=== PATIENT | female | born 1955 | race Caucasian/White ===

== ENCOUNTER 2025-01-24 11:35 | Inpatient (IN) ==
[2025-01-24] MEDS ORDERED: ACETAMINOPHEN 1000 MG/100 ML 1,000 MG/100 ML IV.SOLN IV ONE (11:48)
[2025-01-24] MEDS: ACETAMINOPHEN 1000 MG/100 ML 1,000 MG/100 ML IV.SOLN IV STA (12:23)
[2025-01-24 12:27] LABS: Basophils #(Absolute) Auto 0.1 (0.0-0.1); Basophils%(Percent) Auto 0.4 (0.1-0.85); Eosinophils#(Absolute)Auto 0.1 (0.0-0.2); Eosinophils%(Percent) Auto 0.5 % (0.4-2.8); Granulocytes % - Auto 86.1 % (47.8-71.3); Granulocytes#(Absolute)- Auto 11.9 (2.3-6.0); Hematocrit 40.3 % (35.9-46.7); Mean Corpuscular Volume 92.2 fl (81.0-93.7); Monocytes #(Absolute)- Auto 1.4 (1.1-3.1); Monocytes %(Percent)- Auto 10.5 % (3.6-9.8); Platelet Count 116 K/uL (152-353); White Blood Count 13.8 K/uL (4.3-9.3)
--- NOTE | 2025-01-24 12:30 | Emergency Department Note ---
HPI - Fever General Chief Complaint: Weakness Stated Complaint: nausea/fever Time Seen by Provider: 01/24/25 11:46 Source: patient and family Source comment: spouse Mode of arrival: walk-in Limitations: no limitations History of Present Illness HPI Narrative: 69-year-old female presents to ER from her primary care provider's office with presentation of fever, weakness, and general body aches with not feeling well. Patient reports that her primary care provider's office gave her a shot for nausea but did not do any other testing beside swabbing her for flu, COVID, and strep throat which were all negative. MD elicited complaint: Reports fever and weakness Pertinent past history: Reports other (Lupus, rheumatoid arthritis) Onset (ago): day(s) (1) Measured temperature: 102.5 F Context: Reports other (recent illness) Exacerbating factors: Reports exertion Relieving factors: Reports nothing Associated symptoms: Reports chills, myalgias, rhinorrhea, nasal congestion, cough, shortness of breath and nausea Treatments prior to arrival fever: Reports acetaminophen Related Data Home Medications Medication Instructions Recorded Confirmed atorvastatin 10 mg tablet 10 mg PO DAILY 01/24/2501/09 carvedilol 6.25 mg tablet 6.25 mg PO DAILY 01/24/25 folic acid 1 mg tablet 1 mg PO DAILY 01/24/2501/24 levocetirizine 5 mg tablet 5 mg PO DAILY 01/24/2501/09 methenamine hippurate 1 gram tablet 1 g PO Q12H 01/24/25 mirabegron 50 mg tablet,extended 50 mg PO Q24H 5 01/24/25 release 24 hr montelukast 10 mg tablet 10 mg PO DAILY 01/24/2501/09 nintedanib 150 mg capsule (Ofev) 150 mg PO Q12H 01/24/25 pantoprazole 40 mg tablet,delayed 40 mg PO DAILY 01/2401/24/25 release prednisone 5 mg tablet 5 mg PO DAILY 01/24/2501/24 Allergies Allergy/AdvReac Type Severity Reaction Status Date / Time amoxicillin (From Augmentin) Allergy Verified 01/24/25 11:54 clavulanic acid (From Allergy Verified 01/24/25 11:54 Augmentin) quinine Allergy Verified 01/24/25 11:54 sulfamethoxazole (From Allergy Verified 01/24/25 11:54 Bactrim) trimethoprim (From Bactrim) Allergy Verified 01/24/25 11:54 vonoprazan Allergy Verified 01/24/25 11:54 Review of Systems Status of ROS 10 or more systems reviewed and unremark able except as noted in history and below Constitutional Reports: fever, chills and fatigue Ears, nose, mouth, and throat Reports: nasal congestion Cardiovascular Reports: shortness of breath with exertion and shortness of breath when lying down Respiratory Reports: shortness of breath, cough and chest congestion Gastrointestinal Reports: nausea Genitourinary Reports: painful urination and urinary frequency Neurological Reports: headache Psychiatric Reports: anxiety Allergic/Immunologic Reports: seasonal allergies [facility] Medical History (Updated 01/24/25 @ 11:58 by Fransisca Bella RN) Cirrhosis of liver Lupus Interstitial lung disease Surgical History (Updated 01/24/25 @ 11:58 by Fransisca Bella RN) H/O total knee replacement Hx of bladder repair surgery H/O total hysterectomy History of section Social History Smoking status: unknown if ever smoked What is your current living situation: I presently have a place to live Feel stressed/tense/nervous/anxious/difficulty sleeping: to some extent Life stressor details: Current medical condition Exam Constitutional: normal general appearance, distress noted (moderate), average body habitus, no limitations and alert Vital Signs - 24 hr 01/24/25 11:41 01/24/25 12:30 01/24/25 13:00 Temperature 102.5 F H 99.2 F Pulse Rate 94 H 89 88 Respiratory Rate 19 16 16 Blood Pressure 125/56 121/66 116/56 Pulse Oximetry 92 L 93 L 93 L Oxygen Delivery Ks thod Room Air Room Air Oxygen Flow Rate 01/24/25 13:24 01/24/25 13:30 01/24/25 13:45 Temperature Pulse Rate 88 87 85 Respiratory Rate 20 20 20 Blood Pressure 116/56 121/59 125/61 Pulse Oximetry 92 L 90 L 91 L Oxygen Delivery Ks thod Room Air Room Air Room Air Oxygen Flow Rate 01/24/25 14:01 01/24/25 14:16 01/24/25 14:31 Temperature Pulse Rate 85 81 82 Respiratory Rate 20 18 18 Blood Pressure 155/86 142/82 149/74 Pulse Oximetry 88 L 97 97 Oxygen Delivery Me thod Room Air Nasal Cannula Nasal Cannula Oxygen Flow Rate 2 2 01/24/25 14:45 Temperature Pulse Rate 86 Respiratory Rate 20 Blood Pressure 158/80 Pulse Oximetry 98 Oxygen Delivery Me thod Nasal Cannula Oxygen Flow Rate 2 HENMT: normocephalic, head/scalp atraumatic, hearing grossly normal bilaterally, external ears normal, nasal mucous membranes abnormal (clear) (nasal discharge), external nose normal, oral mucous membranes normal, oropharynx normal, dentition normal and gingiva normal Eyes: PERRL, EOMs intact bilaterally, conjunctivae normal, no scleral icterus, no papilledema, normal visual [place] by confrontation, alignment normal, periorbital findings normal and no nystagmus Neck/C-Spine: visual inspection normal, trachea midline, cervical spine non tender, cervical full ROM noted and supple Lymph: no lymphadenopathy noted and no lymphedema noted Chest: inspection of chest normal, inspection of breast(s) abnormal and palpation of breast(s) abnormal Respiratory: breath sounds equal bilaterally, normal respiratory effort, auscultation abnormal (diminished breath sound) (left lower lobe), no wheezes, no rales, no retractions and no use of accessory muscles Cardiovascular: normal heart rate noted, regular rhythm noted, no gallop, no rub, no murmur, no JVD, no clicks, peripheral pulses 2+ throughout, no bruits noted and no additional abnormal heart sounds Gastrointestinal: abdomen normal to inspection, abdomen soft to palpation, tender to palpation (diffuse abd pain) (mild), nondistended, normoactive bowel sounds, no hepatosplenomegaly, no masses, no pulsatile mass, no ascites and normal rectal exam (deferred) Genitourinary: no CVA tenderness, bladder normal to palpation, external appearance abnormal, vaginal abnormality noted (deferred), cervical abnormality noted, bimanual exam abnormal and inguinal lymphadenopathy noted Back/Pelvis: spine normal to inspection Extremities: normal to inspection, normal to palpation, no tenderness, full ROM, no joint enlargement and no deformity Neurology: manual arts therapist II-XII intact, no movement abnormality noted, no focal motor deficit noted, no sensory deficits noted, gait normal, speech normal, coordination normal, no pronator drift noted, no fasciculations noted and GCS normal Psychiatry: Mental Status Exam documented within this Exam's Psych section mental status grossly normal, oriented x3, thought process normal, cooperative, affect normal, psychomotor activity normal and memory normal Feel stressed/tense/nervous/anxious/difficulty sleeping: to some extent Life stressor details: Current medical condition Skin: skin color normal, no rash, no lesions, no ecchymosis noted, no wounds, no lacerations, skin turgor normal, no jaundice, no petechiae, no mottling, nails normal and no alopecia Course Course Hospital Course: 69-year-old female who presented to ER from her primary care provider's office complaining of weakness, fatigue, fever, body aches has been evaluated by physical exam, CBC, CMP, urinalysis, urine culture, blood culture, lactic acid, plain film chest x-ray, and EKG with results as noted in charting. Patient's EKG reveals normal sinus rhythm with no ectopy noted no signs of STEMI, patient's chest x-ray reveals left lower lobe bronchopneumonia, patient's CBC reveals leukocytosis with a 13.7 white count, CMP reveals hypokalemia with potassium 3.5, hypoalbuminemia, urinalysis reveals a urinary tract infection that is leukoesterase and nitrite positive. Patient will be diagnosed with left lower lobe bronchopneumonia, pyrexia, UTI, pyelonephritis, hypokalemia, anemia and [facility] antibiotic therapy, respiratory therapy, incentive spirometry therapy, fluid rehydration, and ongoing evaluation of lab work as necessary. Patient has been advised of need for admission and has agreed with the treatment pathway at this time. Reevaluation(s) Reevaluation #1: Patient reports that she feels better with the administration of oxygen via nasal cannula and that she does not wish to be admitted for IV antibiotic therapy after discovering her pneumonia. Patient reports she does not want any more hypoxic due to other chronic conditions she has including lupus and rheumatoid arthritis. Time: 14:00 Vital Signs Vital signs: Vital Signs Temperature 102.5 F H 01/24/25 11:41 Pulse Rate 94 H 01/24/25 11:41 Respiratory Rate 19 01/24/25 11:41 Blood Pressure 125/56 01/24/25 11:41 Pulse Oximetry 92 L 01/24/25 11:41 Temperature 99.2 F 01/24/25 13:00 Pulse Rate 86 01/24/25 14:45 Respiratory Rate 20 01/24/25 14:45 Blood Pressure 158/80 01/24/25 14:45 Pulse Oximetry 98 01/24/25 14:45 Oxygen Delivery Method Nasal Cannula 01/24/25 14:45 Oxygen Flow Rate 2 01/24/25 14:45 MDM - Fever MDM Narrative Medical decision making narrative: Medical Decision Making this patient Volle physical exam, CBC, CMP, urinalysis, urine culture, lactic acid, blood cultures, plain film chest x-ray, and EKG. Differential Diagnosis Differential diagnosis: Likely fever of unknown origin, community acquired pneumonia, pyelonephritis, viral infection, sepsis, influenza and other (Urinary tract infection, hyperglycemia, hypothyroidism) Medical Records Attestation: I reviewed the patient's medical records. Lab Data Attestation: I reviewed the patient's lab results. Labs: Lab Results 01/24/25 01/24/25 Range/Units 11:55 12:00 WBC 13.8 H (4.3-9.3) K/uL RBC 4.4 (4.00-5.50) M/uL Hgb 12.9 (12.5-15.8) gm/dL Hct 40.3 (35.9-46.7) % MCV 92.2 (81.0-93.7) fl MCH 29.6 (27.6-32.2) pg MCHC 32.1 L (33.1-35.3) g/dl RDW 16.2 H (11.4-14.2) % Plt Count 116 L (152-353) K/uL MPV 8.8 (6.9-10.8) fl Gran % 86.1 H (47.8-71.3) % Lymph % (Auto) 2.5 L (20.0-43.0) % [place] % (Auto) 10.5 H (3.6-9.8) % Eos % (Auto) 0.5 (0.4-2.8) % Baso % (Auto) 0.4 (0.1-0.85) Lymph # (Auto) 0.3 L (1.1-3.1) [place] # (Auto) 1.4 (1.1-3.1) Eos # (Auto) 0.1 (0.0-0.2) Baso # (Auto) 0.1 (0.0-0.1) Absolute Gran (auto) 11.9 H (2.3-6.0) Sodium 139 (136-145) mmol/L Potassium 3.5 L (3.6-5.2) mmol/L Chloride 105.0 (98-107) mmol/L Carbon Dioxide 29 (21-32) mmol/L Anion Gap 5.0 (4-14) mEq/L BUN 13 (7-18) mg/dL Creatinine 0.7 (0.6-1.3) mg/dL Estimated GFR 93.0 (>59.9) Glucose 114 H (70-110) mg/dL Calcium 9.0 (8.5-10.1) mg/dL Total Bilirubin 1.48 H (0.0-1.0) mg/dL AST 36 (15-37) U/L ALT 34 (30-65) U/L Alkaline Phosphatase 79 (50-136) U/L Total Protein 7.3 (6.4-8.2) g/dL Albumin 3.1 L (3.4-5.0) g/dL Urine Color Yellow (STRAW/YELL.) Urine Appearance Hazy (CLEAR) Ur Specific [place] 1.025 (1.001-1.035) Urine Protein Negative (NEGATIVE) Urine Glucose (UA) Normal (NORMAL) Urine Ketones Negative (NEGATIVE) Urine Occult Blood Negative (NEG - TRACE) Urine Nitrite Positive (NEGATIVE) Urine Bilirubin Negative (NEGATIVE) Urine Urobilinogen Normal (NORMAL) Ur Leukocyte Esterase Positive (NEGATIVE) Urine RBC 0 - 2 (0 - 5) Urine WBC 5 - 10 ( 0 - 5) Ur Epithelial Cells Few (Few/HPF) Amorphous Sediment Negative (Negative) Urine Bacteria Moderate (Negative) Urine Mucus Negative (Negative) Urine Trichomonas Negative (Negative) Urine Yeast Negative (Negative) Fluid pH 6.5 (5 - 9) Imaging Data Imaging ordered: Chest x-ray Attestation: I have reviewed the pertinent imaging results. Radiologist's impression: EXAM: XR CHEST 1V HISTORY: Weakness, fever COMPARISON: 10/14/2020 FINDINGS: The trachea is midline. The cardiac silhouette is enlarged with a tortuous thoracic aorta. Scattered airspace disease within left hilar and infrahilar region consistent with developing left lower lobe bronchopneumonia.. The bony thorax is unremarkable. IMPRESSION: Left lower lobe bronchopneumonia. THIS IS AN ELECTRONICALLY VERIFIED FINAL REPORT 01/24/2025 1:15 PM - Electronically signed by Albert Ibrahim MD ECG Data Attestation: I have reviewed the pertinent ECG results. Interpretation: Sinus rhythm rate 87 Normal P axis Heart RR 688 DC 130 QT 363 P axis 45 QRS 7 T 46 Discharge Plan Discharge Patient Disposition: Admitted As Inpatient Condition: Stable Clinical Impression: Left lower lobe pneumonia, Acute pyelonephritis, Urinary tract infection, Pyrexia, Leukocytosis, Acute hypokalemia, Hypoalbuminemia Time of Disposition: 14:00
[2025-01-24 12:35] LABS: Potassium 3.5 mmol/L (3.6-5.2)
[2025-01-24 12:42] LABS: PH BODY FLUID EXCP BLOOD 6.5 (5 - 9); Specific Gravity Urine 1.025 (1.001-1.035); Urine Appearance HAZY (CLEAR); Urine Blood NEGATIVE (NEG - TRACE); Urine Color YELLOW (STRAW/YELL.); Urine Urobilinogen Normal (NORMAL)
[2025-01-24 12:43] LABS: Urine Amorphous Sediment Negative (Negative); Urine Yeast Negative (Negative)
[2025-01-24] MEDS ORDERED: CEFTRIAXONE SODIUM 1 GM VIAL ONE (15:17)
[2025-01-24] MEDS ORDERED: 0.9 % SODIUM CHLORIDE MB+ 100 ML IV ONE (15:18)
[2025-01-24] MEDS: CEFTRIAXONE SODIUM 1 GM in 0.9 % SODIUM CHLORIDE MB+ 50 ML IV ONE (15:44)
[2025-01-24] MEDS ORDERED: 0.9 % SODIUM CHLORIDE MB+ 50 ML IV ONE (15:45)
[2025-01-24] MEDS ORDERED: ONDANSETRON HCL/PF 4 MG/2 ML VIAL INJ PRN (15:46)
[2025-01-24] MEDS ORDERED: PROMETHAZINE HCL 25 MG in 0.9 % SODIUM CHLORIDE 50 ML IV PRN (15:46)
[2025-01-24] MEDS ORDERED: MORPHINE SULFATE 2 MG/ML CARTRIDGE IV PRN (15:46)
[2025-01-24] MEDS ORDERED: DOCUSATE SODIUM 100 MG CAPSULE PO PRN (15:46)
[2025-01-24] MEDS: AZITHROMYCIN 500 MG 500 MG in 0.9 % SODIUM CHLORIDE 250 ML IV ONE ×2 (18:28→20:32)
[2025-01-24] MEDS: 0.9 % SODIUM CHLORIDE 1000 ML 1,000 ML IV SCH ×2 (18:29→20:32)
[2025-01-24] MEDS: ATORVASTATIN CALCIUM 10 MG TABLET PO ONE (20:32)
[2025-01-24] MEDS: ACETAMINOPHEN 1000 MG/100 ML 1,000 MG/100 ML IV.SOLN IV PRN (20:32)
[2025-01-24] MEDS: carvediloL 6.25 MG TABLET PO ONE (20:32)
[2025-01-24] MEDS: BUDESONIDE 0.5 MG/2 ML AMPUL.NEB INH SCH (21:04)
[2025-01-24] MEDS: CODEINE PHOSPHATE/GUAIFENESIN 200/20 MG/ 10 ML LIQUID PO PRN (21:04)
[2025-01-24] MEDS: IPRATROPIUM/ALBUTEROL SULFATE 3 ML AMPUL.NEB INH SCH (21:04)
[2025-01-25] MEDS: KETOROLAC 30 MG/ML INJ VIAL IVP PRN ×2 (01:05→22:30)
[2025-01-25 05:09] LABS: Basophils%(Percent) Auto 0.2 (0.1-0.85); Eosinophils#(Absolute)Auto 0.1 (0.0-0.2); Granulocytes % - Auto 82.9 % (47.8-71.3); Granulocytes#(Absolute)- Auto 6.2 (2.3-6.0); Hematocrit 34.5 % (35.9-46.7); Mean Corpuscular Volume 91.9 fl (81.0-93.7); Monocytes #(Absolute)- Auto 0.8 (1.1-3.1); Monocytes %(Percent)- Auto 11.1 % (3.6-9.8); Platelet Count 81 K/uL (152-353); White Blood Count 7.5 K/uL (4.3-9.3)
[2025-01-25 05:27] LABS: Potassium 2.9 mmol/L (3.6-5.2)
[2025-01-25] MEDS: CEFTRIAXONE SODIUM 1 GM in 0.9 % SODIUM CHLORIDE MB+ 50 ML IV SCH (08:22)
[2025-01-25] MEDS: AZITHROMYCIN 500 MG 500 MG in 0.9 % SODIUM CHLORIDE 250 ML IV SCH (08:22)
[2025-01-25] MEDS: PANTOPRAZOLE SODIUM 40 MG TABLET.DR PO SCH (08:23)
[2025-01-25] MEDS: LEVOFLOXACIN/D5W 750 MG/150 ML 750 MG/150 ML PIGGYBACK IV SCH (09:02)
[2025-01-25] MEDS: KETOROLAC 30 MG/ML INJ VIAL IVP ONE (09:20)
--- NOTE | 2025-01-25 10:09 | History & Physical Report ---
H&P: HPI History of Present Illness Chief complaint: PNEUMONIA, PYELONEPGRITIS, UTI, FEVER, LEUKOCYTOSI Narrative: 69-year-old female presents to ER from her primary care provider's office with presentation of fever, weakness, and general body aches with not feeling well. Patient reports that her primary care provider's office gave her a shot for nausea but did not do any other testing beside swabbing her for flu, COVID, and strep throat which were all negative. On chronic Immunosuppressants drugs for auto immune suppressants and fevers still present on arrival to the floor. MD elicited complaint: Reports fever and weakness and worsening breathing Review of Systems Status of ROS 10 or more systems reviewed and unremark able except as noted in history and below Constitutional Reports: fever, chills and fatigue; Denies: change in sleep pattern Eyes Denies: change in vision, blurry vision or blind spots Ears, nose, mouth, and throat Reports: difficulty swallowing and nasal congestion; Denies: throat pain, neck pain, throat swelling or hoarseness Cardiovascular Reports: palpitations, lightheadedness, shortness of breath with exertion and shortness of breath when lying down; Denies: chest pain, edema or swelling of feet/ankles Respiratory Reports: shortness of breath, cough, wheezing and chest congestion Gastrointestinal Reports: nausea and heartburn; Denies: vomiting, coffee grounds in vomit, diarrhea, constipation, bloating, belching or excessive passing of gas Genitourinary Denies: urinary incontinence Musculoskeletal Denies: back pain, neck pain, extremity pain, extremity swel ling or joint pain Integumentary/Breast Denies: rash, itching, redness, skin pain or skin tenderness Neurological Reports: headache and difficulty communicating thoughts; Denies: numbness in extremities, weakness in extremities, dizziness, confusion or slurred speech Psychiatric Reports: anxiety and difficulty concentrating; Denies: mood swings, panic attacks, change in sleep pattern, hopelessness, loss of interest, irritability, paranoia or memory loss Endocrine Reports: fatigue; Denies: excessive urination, excessive thirst, cold intolerance, excessive sweating or flushing Hematologic/Lymphatic Denies: easy bruising, easy bleeding or enlarged lymph nodes Allergic/Immunologic Reports: seasonal allergies; Denies: hives, throat swelling, tongue swelling, facial swelling, wheezing or itchy eyes [facility] Medical History Hypoalbuminemia Cirrhosis of liver Lupus Interstitial lung disease Surgical History H/O total knee replacement Hx of bladder repair surgery H/O total hysterectomy History of section Social History Smoking status: unknown if ever smoked What is your current living situation: I presently have a place to live Problems where you live: no known problems Highest level of school completed/degree received: high school Feel stressed/tense/nervous/anxious/difficulty sleeping: to some extent Life stressors: other Life stressor details: current health Meds Home Medications and Allergies Home Medications Medication Instructions Recorded Confirmed Type atorvastatin 10 mg tablet 10 mg PO DAILY 01/24/2501/09 History carvedilol 6.25 mg tablet 6.25 mg PO DAILY 01/24/25 History folic acid 1 mg tablet 1 mg PO DAILY 01/24/2501/24 History levocetirizine 5 mg tablet 5 mg PO DAILY 01/24/2501/09 History methenamine hippurate 1 gram tablet 1 g PO Q12H 01/24/25 History mirabegron 50 mg tablet,extended 50 mg PO Q24H 5 01/24/25 History release 24 hr montelukast 10 mg tablet 10 mg PO DAILY 01/24/2501/09 History nintedanib 150 mg capsule (Ofev) 150 mg PO Q12H 01/24/25 History pantoprazole 40 mg tablet,delayed 40 mg PO DAILY 01/2401/24/25 History release prednisone 5 mg tablet 5 mg PO DAILY 01/24/2501/24 History Allergies Allergy/AdvReac Type Severity Reaction Status Date / Time amoxicillin (From Augmentin) Allergy Verified 01/24/25 11:54 clavulanic acid (From Allergy Verified 01/24/25 11:54 Augmentin) quinine Allergy Verified 01/24/25 11:54 sulfamethoxazole (From Allergy Verified 01/24/25 11:54 Bactrim) trimethoprim (From Bactrim) Allergy Verified 01/24/25 11:54 vonoprazan Allergy Verified 01/24/25 11:54 Exam Constitutional: abnormal general appearance (disheveled) and (chronically ill), distress noted (moderate), average body habitus, no limitations and alert Vital Signs - 24 hr 01/24/25 11:41 01/24/25 12:30 01/24/25 13:00 Temperature 102.5 F H 99.2 F Pulse Rate 94 H 89 88 Pulse Rate [Left B rachial] Respiratory Rate 19 16 16 Blood Pressure 125/56 121/66 116/56 Blood Pressure [Le ft Arm] Pulse Oximetry 92 L 93 L 93 L Oxygen Delivery Me thod Room Air Room Air Oxygen Flow Rate Fraction of Inspir ed Oxygen 01/24/25 13:24 01/24/25 13:30 01/24/25 13:45 Temperature Pulse Rate 88 87 85 Pulse Rate [Left B rachial] Respiratory Rate 20 20 20 Blood Pressure 116/56 121/59 125/61 Blood Pressure [Le ft Arm] Pulse Oximetry 92 L 90 L 91 L Oxygen Delivery Me thod Room Air Room Air Room Air Oxygen Flow Rate Fraction of Inspir ed Oxygen 01/24/25 14:01 01/24/25 14:16 01/24/25 14:16 Temperature Pulse Rate 85 81 Pulse Rate [Left B rachial] Respiratory Rate 20 18 Blood Pressure 155/86 142/82 Blood Pressure [Le ft Arm] Pulse Oximetry 88 L 97 Oxygen Delivery Me thod Room Air Nasal Cannula Nasal Cannula Oxygen Flow Rate 2 3 Fraction of Inspir ed Oxygen 01/24/25 14:31 01/24/25 14:45 01/24/25 15:00 Temperature Pulse Rate 82 86 77 Pulse Rate [Left B rachial] Respiratory Rate 18 20 16 Blood Pressure 149/74 158/80 153/92 Blood Pressure [Le ft Arm] Pulse Oximetry 97 98 98 Oxygen Delivery Me thod Nasal Cannula Nasal Cannula Nasal Cannula Oxygen Flow Rate 2 2 2 Fraction of Inspir ed Oxygen 01/24/25 15:30 01/24/25 15:46 01/24/25 16:00 Temperature 98.3 F Pulse Rate 72 77 Pulse Rate [Left B rachial] 86 Respiratory Rate 16 18 16 Blood Pressure 128/61 100/48 Blood Pressure [Le ft Arm] 123/56 Pulse Oximetry 98 98 98 Oxygen Delivery Me thod Nasal Cannula Nasal Cannula Nasal Cannula Oxygen Flow Rate 2 3 2 Fraction of Inspir ed Oxygen 01/24/25 16:16 01/24/25 19:29 01/24/25 19:59 Temperature 99.1 F Pulse Rate Pulse Rate [Left B rachial] 94 H Respiratory Rate 20 20 Blood Pressure Blood Pressure [Le ft Arm] 131/75 Pulse Oximetry 90 L 98 Oxygen Delivery Me thod Room Air Nasal Cannula Oxygen Flow Rate 3 Fraction of Inspir ed Oxygen 32 01/24/25 21:05 01/24/25 23:19 01/25/25 01:00 Temperature 99.7 F H Pulse Rate Pulse Rate [Left B rachial] 80 83 Respiratory Rate 19 18 Blood Pressure Blood Pressure [Le ft Arm] 105/46 Pulse Oximetry 97 98 99 Oxygen Delivery Me thod Nasal Cannula Nasal Cannula Oxygen Flow Rate 2 2 Fraction of Inspir ed Oxygen 01/25/25 04:26 01/25/25 04:26 01/25/25 05:53 Temperature 99.1 F Pulse Rate Pulse Rate [Left B rachial] 63 Respiratory Rate 18 Blood Pressure Blood Pressure [Le ft Arm] Pulse Oximetry 100 86 L Oxygen Delivery Me thod Nasal Cannula Oxygen Flow Rate 2 Fraction of Inspir ed Oxygen 01/25/25 07:37 01/25/25 08:24 Temperature 101.7 F H Pulse Rate Pulse Rate [Left B rachial] 95 H Respiratory Rate 19 Blood Pressure Blood Pressure [Le ft Arm] 101/46 Pulse Oximetry 96 99 Oxygen Delivery Me thod Nasal Cannula Oxygen Flow Rate 3 Fraction of Inspir ed Oxygen HENMT: normocephalic, head/scalp atraumatic, hearing grossly normal bilaterally, external ears normal, nasal mucous membranes abnormal (clear) (nasal discharge), external nose normal, oral mucous membranes normal, oropharynx normal, dentition normal and gingiva normal Eyes: PERRL, EOMs intact bilaterally, conjunctivae normal, no scleral icterus, papilledema noted, normal visual [place] by confrontation, alignment normal, periorbital findings normal and no nystagmus Neck/C-Spine: trachea midline, cervical spine nontender, abnormal cervical ROM noted, supple, no meningeal signs, thyroid normal and no carotid bruits Lymph: no lymphadenopathy noted and no lymphedema noted Chest: inspection of chest normal, inspection of breasts normal and palpation of breasts normal Respiratory: breath sounds equal bilaterally, normal respiratory effort, auscultation abnormal (diminished breath sound) (left lower lobe) and (bronchial breath sounds), no wheezes, no rales, no retractions and no use of accessory muscles Cardiovascular: normal heart rate noted, regular rhythm noted, no gallop, no rub, no murmur, no JVD, no clicks, peripheral pulses 2+ throughout, no bruits noted and no additional abnormal heart sounds Gastrointestinal: abdomen normal to inspection, abdomen soft to palpation, tender to palpation (diffuse abd pain) (mild), nondistended, normoactive bowel sounds, no hepatosplenomegaly, no masses, no pulsatile mass and no ascites Genitourinary: no CVA tenderness and bladder normal to palpation Back/Pelvis: no thoracic spine tenderness, no lumbar spine tenderness, thoracic spine ROM abnormal and lumbar spine ROM abnormal Extremities: normal to inspection, normal to palpation, no tenderness, full ROM, no joint enlargement and no deformity Neurology: sole tacker II-XII intact, no movement abnormality noted, no focal motor deficit noted, sensory deficit noted, gait abnormality noted, speech abnormality noted, coordination abnormality noted, pronator drift noted, no fasciculations noted and GCS normal Psychiatry: Mental Status Exam documented within this Exam's Psych section mental status grossly normal, oriented x3, thought process abnormality noted, cooperative, affect abnormality noted (labile), psychomotor abnormality noted (slow) and (disorganized) and memory normal Feel stressed/tense/nervous/anxious/difficulty sleeping: to some extent Life stressors: other Life stressor details: current health Skin: skin color abnormal Reports (pale), no rash, no lesions, no ecchymosis noted, no wounds, no lacerations, skin turgor normal, no jaundice, no petechiae, no mottling, nails abnormality noted and no alopecia Assessment and Plan Assessment and Plan (1) Left lower lobe pneumonia: Qualifiers: Pneumonia type: due to unspecified organism Qualified Code(s): J18.9 - Pneumonia, unspecified organism Code(s): J18.9 - Pneumonia, unspecified organism (2) Cirrhosis of liver: Qualifiers: Hepatic cirrhosis type: unspecified hepatic cirrhosis Ascites presence: without ascites Qualified Code(s): K74.60 - Unspecified cirrhosis of liver Code(s): K74.60 - Unspecified cirrhosis of liver (3) Lupus: (4) Interstitial lung disease: Code(s): J84.9 - Interstitial pulmonary disease, unspecified (5) Hypokalemia: Code(s): E87.6 - Hypokalemia (6) Hypoalbuminemia: Code(s): E88.09 - Other disorders of plasma-protein metabolism, not elsewhere classified Results Labs Labs: CBC 01/24/25 01/25/25 Range/Units 11:55 05:05 WBC 13.8 H 7.5 (4.3-9.3) K/uL RBC 4.4 3.8 L (4.00-5.50) M/uL Hgb 12.9 11.4 L (12.5-15.8) gm/dL Hct 40.3 34.5 L (35.9-46.7) % Plt Count 116 L 81 L (152-353) K/uL Gran % 86.1 H 82.9 H (47.8-71.3) % Lymph % (Auto) 2.5 L 4.8 L (20.0-43.0) % [place] % (Auto) 10.5 H 11.1 H (3.6-9.8) % Eos % (Auto) 0.5 1.0 (0.4-2.8) % Baso % (Auto) 0.4 0.2 (0.1-0.85) Lymph # (Auto) 0.3 L 0.4 L (1.1-3.1) [place] # (Auto) 1.4 0.8 L (1.1-3.1) Eos # (Auto) 0.1 0.1 (0.0-0.2) Baso # (Auto) 0.1 0.0 (0.0-0.1) Absolute Gran (auto) 11.9 H 6.2 H (2.3-6.0) CMP 01/24/25 01/25/25 11:55 05:05 Sodium 139 138 Potassium 3.5 L 2.9 L Chloride 105.0 105.0 Carbon Dioxide 29 32 BUN 13 15 Creatinine 0.7 0.7 Glucose 114 H 93 Calcium 9.0 8.4 L Liver Function 01/24/25 01/25/25 Range/Units 11:55 05:05 Total Bilirubin 1.48 H 0.88 (0.0-1.0) mg/dL AST 36 29 (15-37) U/L ALT 34 28 L (30-65) U/L Alkaline Phosphatase 79 71 (50-136) U/L Albumin 3.1 L 2.5 L (3.4-5.0) g/dL Urine 01/24/25 12:00 Urine Color Yellow Urine Appearance Hazy Ur Specific [place] 1.025 Urine Protein Negative Urine Glucose (UA) Normal Pulse Oximetry Attestation: I have reviewed the pertinent pulse oximetry results. Imaging Imaging ordered: Chest x-ray Radiologist's impression: XR CHEST 1V HISTORY: Weakness, fever COMPARISON: 10/14/2020 FINDINGS: The trachea is midline. The cardiac silhouette is enlarged with a tortuous thoracic aorta. Scattered airspace disease within left hilar and infrahilar region consistent with developing left lower lobe bronchopneumonia.. The bony thorax is unremarkable. IMPRESSION: Left lower lobe bronchopneumonia.
[2025-01-25] MEDS: MONTELUKAST SODIUM 10 MG TABLET PO SCH (11:33)
[2025-01-25] MEDS: POTASSIUM CHLORIDE 20 MEQ TAB.ER.PRT PO SCH (11:33)
[2025-01-25] MEDS: FOLIC ACID 1 MG TABLET PO SCH (11:33)
[2025-01-25] MEDS: METHYLPREDNISOLONE SOD SUCC/PF 40 MG/ML VIAL INJ SCH (11:34)
[2025-01-25] MEDS: NINTEDANIB 150 MG PO SCH (11:47)
[2025-01-25] MEDS: Mirabegron 50 mg tablet extended release 24 hr PO SCH (11:47)
[2025-01-25] MEDS: ENOXAPARIN SODIUM 40 MG/0.4 ML SYRINGE SUBQ SCH (14:31)
--- NOTE | 2025-01-25 17:12 | Progress Note ---
Exam Constitutional: Vital Signs - 24 hr 01/24/25 19:29 01/24/25 19:59 01/24/25 21:05 Temperature 99.1 F Pulse Rate [Left B rachial] 94 H Respiratory Rate 20 Blood Pressure [Le ft Arm] 131/75 Pulse Oximetry 90 L 98 97 Oxygen Delivery Me thod Room Air Nasal Cannula Oxygen Flow Rate 3 Fraction of Inspir ed Oxygen 32 01/24/25 23:19 01/25/25 01:00 01/25/25 04:26 Temperature 99.7 F H Pulse Rate [Left B rachial] 80 83 63 Respiratory Rate 19 18 18 Blood Pressure [Le ft Arm] 105/46 Pulse Oximetry 98 99 100 Oxygen Delivery Me thod Nasal Cannula Nasal Cannula Nasal Cannula Oxygen Flow Rate 2 2 2 Fraction of Inspir ed Oxygen 01/25/25 04:26 01/25/25 05:53 01/25/25 07:37 Temperature 99.1 F 101.7 F H Pulse Rate [Left B rachial] 95 H Respiratory Rate 19 Blood Pressure [Le ft Arm] 101/46 Pulse Oximetry 86 L 96 Oxygen Delivery Me thod Nasal Cannula Oxygen Flow Rate 3 Fraction of Inspir ed Oxygen 01/25/25 08:24 01/25/25 11:35 01/25/25 12:00 Temperature 97.6 F Pulse Rate [Left B rachial] 77 Respiratory Rate 19 Blood Pressure [Le ft Arm] 115/73 Pulse Oximetry 99 96 98 Oxygen Delivery Me thod Nasal Cannula Oxygen Flow Rate 3 Fraction of Inspir ed Oxygen 01/25/25 15:27 01/25/25 16:00 Temperature 97.8 F Pulse Rate [Left B rachial] 80 Respiratory Rate 19 Blood Pressure [Le ft Arm] 98/56 Pulse Oximetry 92 L 92 L Oxygen Delivery Me thod Nasal Cannula Oxygen Flow Rate 3 Fraction of Inspir ed Oxygen Progress Note: Objective Labs Labs: CBC 01/25/25 Range/Units 05:05 WBC 7.5 (4.3-9.3) K/uL RBC 3.8 L (4.00-5.50) M/uL Hgb 11.4 L (12.5-15.8) gm/dL Hct 34.5 L (35.9-46.7) % Plt Count 81 L (152-353) K/uL Gran % 82.9 H (47.8-71.3) % Lymph % (Auto) 4.8 L (20.0-43.0) % [place] % (Auto) 11.1 H (3.6-9.8) % Eos % (Auto) 1.0 (0.4-2.8) % Baso % (Auto) 0.2 (0.1-0.85) Lymph # (Auto) 0.4 L (1.1-3.1) [place] # (Auto) 0.8 L (1.1-3.1) Eos # (Auto) 0.1 (0.0-0.2) Baso # (Auto) 0.0 (0.0-0.1) Absolute Gran (auto) 6.2 H (2.3-6.0) CMP 01/25/25 05:05 Sodium 138 Potassium 2.9 L Chloride 105.0 Carbon Dioxide 32 BUN 15 Creatinine 0.7 Glucose 93 Calcium 8.4 L Liver Function 01/25/25 Range/Units 05:05 Total Bilirubin 0.88 (0.0-1.0) mg/dL AST 29 (15-37) U/L ALT 28 L (30-65) U/L Alkaline Phosphatase 71 (50-136) U/L Albumin 2.5 L (3.4-5.0) g/dL Urine 01/24/25 12:00 Urine Color Yellow Urine Appearance Hazy Ur Specific [place] 1.025 Urine Protein Negative Urine Glucose (UA) Normal Progress Note: A&P Assessment and Plan (1) Left lower lobe pneumonia: Qualifiers: Pneumonia type: due to unspecified organism Qualified Code(s): J18.9 - Pneumonia, unspecified organism (2) Cirrhosis of liver: Qualifiers: Hepatic cirrhosis type: unspecified hepatic cirrhosis Ascites presence: without ascites Qualified Code(s): K74.60 - Unspecified cirrhosis of liver (3) Lupus: (4) Interstitial lung disease: (5) Hypokalemia: (6) Hypoalbuminemia: Fall Risk Details Grady Fall Scale Risk Level: Moderate Fall Risk Current Medications: Current Medications Acetaminophen (Acetaminophen 325 Mg Tablet) 650 mg PO Q6H PRN PRN Reason: Pain Albuterol Sulfate (Ipratropium/Albuterol Sulfate 3 Ml Ampul.Neb) 3 ml INH Q4H [facility] Last Admin: 01/25/25 15:27 Dose: 3 ml Atorvastatin Calcium (Atorvastatin Calcium 10 Mg Tablet) 10 mg PO DAILY [facility] Budesonide (Budesonide 0.5 Mg/2 Ml Ampul.Neb) 1 mg INH RBID [facility] Last Admin: 01/25/25 08:24 Dose: 1 mg Carvedilol (Carvedilol 6.25 Mg Tablet) 6.25 mg PO 2100 [facility] Docusate Sodium (Docusate Sodium 100 Mg Capsule) 100 mg PO DAILY PRN PRN Reason: Constipation Enoxaparin Sodium (Enoxaparin Sodium 40 Mg/0.4 Ml Syringe) 40 mg SUBQ DAILY [facility] Last Admin: 01/25/25 14:31 Dose: Not Given Folic Acid (Folic Acid 1 Mg Tablet) 1 mg PO DAILY [facility] Last Admin: 01/25/25 11:33 Dose: 1 mg Guaifenesin/Codeine Phosphate (Codeine Phosphate/Guaifenesin 200/20 Mg/ 10 Ml Liquid) 5 ml PO Q8H PRN PRN Reason: Cough Last Admin: 01/24/25 21:04 Dose: 5 ml Promethazine HCl 25 mg/ Sodium (Chloride) 51 mls @ 200 mls/hr IV Q8H PRN PRN Reason: Nausea And Vomiting Ceftriaxone Sodium 1 gm/ (Sodium Chloride) 50 mls @ 100 mls/hr IV DAILY [facility] Last Infusion: 01/25/25 09:47 Dose: Infused Azithromycin 500 mg/ Sodium (Chloride) 250 mls @ 250 mls/hr IV DAILY [facility] Stop: 01/27/25 09:59 Last Infusion: 01/25/25 09:46 Dose: Infused Acetaminophen (Acetaminophen 1000 Mg/100 Ml) 1,000 mg in 100 mls @ 400 mls/hr IV Q6H PRN PRN Reason: Pain Last Admin: 01/25/25 07:26 Dose: 400 mls/hr Sodium Chloride (Sodium Chloride) 1,000 mls @ 75 mls/hr IV CONT [facility] Last Admin: 01/25/25 08:22 Dose: 100 mls/hr Levofloxacin/Dextrose ([id number] 750 Mg/150 Ml) 750 mg in 150 mls @ 75 mls/hr IV 0900 [facility] Last Admin: 01/25/25 09:02 Dose: 75 mls/hr Ketorolac Tromethamine (Ketorolac 30 Mg/Ml Inj Vial) 15 mg IVP Q6H PRN PRN Reason: Moderate Pain Scale 5-7/fever Stop: 01/29/25 14:59 Methylprednisolone Sodium Succinate (Methylprednisolone Sod Succ/Pf 40 Mg/Ml Vial) 40 mg INJ Q12H [facility] Last Admin: 01/25/25 11:34 Dose: 40 mg Montelukast Sodium (Montelukast Sodium 10 Mg Tablet) 10 mg PO DAILY [facility] Last Admin: 01/25/25 11:33 Dose: 10 mg Morphine Sulfate (Morphine Sulfate 2 Mg/Ml Cartridge) 2 mg IV Q4H PRN PRN Reason: Severe Pain SCALE 8-10 Methenamine Hippurate 1 Gram Tablet 1 gm PO Q12H [facility] Last Admin: 01/25/25 11:47 Dose: 1 gm Mirabegron 50 Mg Tablet Extended Release 24 Hr 50 mg PO Q24H [facility] Last Admin: 01/25/25 11:47 Dose: 50 mg Nintedanib [Ofev] (150 Mg Capsule) 150 mg PO Q12H [facility] Last Admin: 01/25/25 11:47 Dose: 150 mg Ondansetron HCl (Ondansetron Hcl/Pf 4 Mg/2 Ml Vial) 4 mg INJ Q6H PRN PRN Reason: Nausea And Vomiting Pantoprazole Sodium (Pantoprazole Sodium 40 Mg Tablet.Dr) 40 mg PO DAILY [facility] Last Admin: 01/25/25 08:23 Dose: 40 mg Potassium Chloride (Potassium Chloride 20 Meq Tab.Er.Prt) 40 meq PO Q6H [facility] Stop: 01/25/25 23:59 Last Admin: 01/25/25 16:10 Dose: 40 meq Time Spent With Patient Time: Total time spent is greater than 50% in coordination of care (as documented) at patient's floor/unit and/or counseling patient:
[2025-01-25] MEDS: ACETAMINOPHEN 325 MG TABLET PO PRN (19:40)
[2025-01-25] MEDS: carvediloL 6.25 MG TABLET PO SCH (21:36)
[2025-01-26] MEDS: MAGNESIUM, ALUMINUM HYDROXIDE 30 ML ORAL.SUSP PO PRN (01:16)
[2025-01-26 05:55] LABS: Basophils%(Percent) Auto 0.1 (0.1-0.85); Granulocytes#(Absolute)- Auto 5.4 (2.3-6.0); Hematocrit 32.5 % (35.9-46.7); Mean Corpuscular Volume 91.4 fl (81.0-93.7); Monocytes #(Absolute)- Auto 0.2 (1.1-3.1); Monocytes %(Percent)- Auto 2.7 % (3.6-9.8); Platelet Count 78 K/uL (152-353); White Blood Count 5.9 K/uL (4.3-9.3)
--- NOTE | 2025-01-26 05:56 | Progress Note ---
Exam Constitutional: Vital Signs - 24 hr 01/25/25 07:37 01/25/25 08:24 01/25/25 11:35 Temperature 101.7 F H Pulse Rate [Left B rachial] 95 H Respiratory Rate 19 Blood Pressure [Le ft Arm] 101/46 Pulse Oximetry 96 99 96 Oxygen Delivery Me thod Nasal Cannula Oxygen Flow Rate 3 Fraction of Inspir ed Oxygen 01/25/25 12:00 01/25/25 15:27 01/25/25 16:00 Temperature 97.6 F 97.8 F Pulse Rate [Left B rachial] 77 80 Respiratory Rate 19 19 Blood Pressure [Le ft Arm] 115/73 98/56 Pulse Oximetry 98 92 L 92 L Oxygen Delivery Me thod Nasal Cannula Nasal Cannula Oxygen Flow Rate 3 3 Fraction of Inspir ed Oxygen 01/25/25 19:32 01/25/25 20:32 01/25/25 20:32 Temperature 97.6 F Pulse Rate [Left B rachial] 73 Respiratory Rate 18 Blood Pressure [Le ft Arm] 113/59 Pulse Oximetry 99 97 97 Oxygen Delivery Me thod Room Air Nasal Cannula Oxygen Flow Rate 2 Fraction of Inspir ed Oxygen 28 01/25/25 23:48 01/26/25 00:10 01/26/25 03:44 Temperature 98.1 F 98.4 F Pulse Rate [Left B rachial] 77 75 Respiratory Rate 17 18 Blood Pressure [Le ft Arm] 127/58 117/52 Pulse Oximetry 97 99 100 Oxygen Delivery Me thod Room Air Nasal Can nula Room Air Nasal [place] nula Oxygen Flow Rate Fraction of Inspir ed Oxygen 01/26/25 04:07 Temperature Pulse Rate [Left B rachial] Respiratory Rate Blood Pressure [Le ft Arm] Pulse Oximetry 98 Oxygen Delivery Me thod Oxygen Flow Rate Fraction of Inspir ed Oxygen Progress Note: Objective Labs Labs: Urine 01/24/25 12:00 Urine Color Yellow Urine Appearance Hazy Ur Specific [place] 1.025 Urine Protein Negative Urine Glucose (UA) Normal Progress Note: A&P Assessment and Plan (1) Left lower lobe pneumonia: Qualifiers: Pneumonia type: due to unspecified organism Qualified Code(s): J18.9 - Pneumonia, unspecified organism (2) Cirrhosis of liver: Qualifiers: Hepatic cirrhosis type: unspecified hepatic cirrhosis Ascites presence: without ascites Qualified Code(s): K74.60 - Unspecified cirrhosis of liver (3) Lupus: (4) Interstitial lung disease: (5) Hypokalemia: (6) Hypoalbuminemia: Fall Risk Details Grady Fall Scale Risk Level: Moderate Fall Risk Current Medications: Current Medications Acetaminophen (Acetaminophen 325 Mg Tablet) 650 mg PO Q6H PRN PRN Reason: Pain Last Admin: 01/25/25 19:40 Dose: 650 mg Albuterol Sulfate (Ipratropium/Albuterol Sulfate 3 Ml Ampul.Neb) 3 ml INH Q4H [facility] Last Admin: 01/26/25 04:07 Dose: 3 ml Atorvastatin Calcium (Atorvastatin Calcium 10 Mg Tablet) 10 mg PO DAILY [facility] Budesonide (Budesonide 0.5 Mg/2 Ml Ampul.Neb) 1 mg INH RBID [facility] Last Admin: 01/25/25 20:32 Dose: 1 mg Carvedilol (Carvedilol 6.25 Mg Tablet) 6.25 mg PO 2100 [facility] Last Admin: 01/25/25 21:36 Dose: 6.25 mg Docusate Sodium (Docusate Sodium 100 Mg Capsule) 100 mg PO DAILY PRN PRN Reason: Constipation Enoxaparin Sodium (Enoxaparin Sodium 40 Mg/0.4 Ml Syringe) 40 mg SUBQ DAILY [facility] Last Admin: 01/25/25 14:31 Dose: Not Given Folic Acid (Folic Acid 1 Mg Tablet) 1 mg PO DAILY [facility] Last Admin: 01/25/25 11:33 Dose: 1 mg Guaifenesin/Codeine Phosphate (Codeine Phosphate/Guaifenesin 200/20 Mg/ 10 Ml Liquid) 5 ml PO Q8H PRN PRN Reason: Cough Last Admin: 01/24/25 21:04 Dose: 5 ml Promethazine HCl 25 mg/ Sodium (Chloride) 51 mls @ 200 mls/hr IV Q8H PRN PRN Reason: Nausea And Vomiting Ceftriaxone Sodium 1 gm/ (Sodium Chloride) 50 mls @ 100 mls/hr IV DAILY [facility] Last Infusion: 01/25/25 09:47 Dose: Infused Azithromycin 500 mg/ Sodium (Chloride) 250 mls @ 250 mls/hr IV DAILY [facility] Stop: 01/27/25 09:59 Last Infusion: 01/25/25 09:46 Dose: Infused Acetaminophen (Acetaminophen 1000 Mg/100 Ml) 1,000 mg in 100 mls @ 400 mls/hr IV Q6H PRN PRN Reason: Pain Last Admin: 01/25/25 07:26 Dose: 400 mls/hr Sodium Chloride (Sodium Chloride) 1,000 mls @ 75 mls/hr IV CONT [facility] Last Admin: 01/25/25 19:41 Dose: 75 mls/hr Levofloxacin/Dextrose (Eiisiavdulrsh2y 750 Mg/150 Ml) 750 mg in 150 mls @ 75 mls/hr IV 0900 [facility] Last Admin: 01/25/25 09:02 Dose: 75 mls/hr Ketorolac Tromethamine (Ketorolac 30 Mg/Ml Inj Vial) 15 mg IVP Q6H PRN PRN Reason: Moderate Pain Scale 5-7/fever Stop: 01/29/25 14:59 Last Admin: 01/25/25 22:30 Dose: 15 mg Magnesium Hydroxide (Magnesium, Aluminum Hydroxide 30 Ml Oral.Susp) 30 ml PO DAILY PRN PRN Reason: Heartburn Last Admin: 01/26/25 01:16 Dose: 30 ml Methylprednisolone Sodium Succinate (Methylprednisolone Sod Succ/Pf 40 Mg/Ml Vial) 40 mg INJ Q12H [facility] Last Admin: 01/25/25 22:16 Dose: 40 mg Montelukast Sodium (Montelukast Sodium 10 Mg Tablet) 10 mg PO DAILY [facility] Last Admin: 01/25/25 11:33 Dose: 10 mg Morphine Sulfate (Morphine Sulfate 2 Mg/Ml Cartridge) 2 mg IV Q4H PRN PRN Reason: Severe Pain SCALE 8-10 Methenamine Hippurate 1 Gram Tablet 1 gm PO Q12H [facility] Last Admin: 01/25/25 22:16 Dose: 1 gm Mirabegron 50 Mg Tablet Extended Release 24 Hr 50 mg PO Q24H [facility] Last Admin: 01/25/25 11:47 Dose: 50 mg Nintedanib [Ofev] (150 Mg Capsule) 150 mg PO Q12H [facility] Last Admin: 01/25/25 22:17 Dose: 150 mg Ondansetron HCl (Ondansetron Hcl/Pf 4 Mg/2 Ml Vial) 4 mg INJ Q6H PRN PRN Reason: Nausea And Vomiting Pantoprazole Sodium (Pantoprazole Sodium 40 Mg Tablet.Dr) 40 mg PO DAILY [facility] Last Admin: 01/25/25 08:23 Dose: 40 mg Time Spent With Patient Time: Total time spent is greater than 50% in coordination of care (as documented) at patient's floor/unit and/or counseling patient:
[2025-01-26] MEDS: ATORVASTATIN CALCIUM 10 MG TABLET PO SCH (08:23)
[2025-01-26] MEDS: PANTOPRAZOLE SODIUM 40 MG TABLET.DR PO SCH (21:37)
[2025-01-27 05:39] LABS: Granulocytes % - Auto 93.9 % (47.8-71.3); Granulocytes#(Absolute)- Auto 9.6 (2.3-6.0); Mean Corpuscular Volume 91.3 fl (81.0-93.7); Monocytes #(Absolute)- Auto 0.3 (1.1-3.1); Monocytes %(Percent)- Auto 3.3 % (3.6-9.8); Platelet Count 108 K/uL (152-353); White Blood Count 10.2 K/uL (4.3-9.3)
[2025-01-27 07:49] LABS: Potassium 4.3 mmol/L (3.6-5.2)
[2025-01-27] MEDS: ASCORBIC ACID 500 MG TABLET PO SCH (09:31)
[2025-01-27] MEDS: ASPIRIN 81 MG TAB.CHEW PO SCH (09:31)
[2025-01-27] MEDS: PREGABALIN 75 MG CAPSULE PO SCH (09:32)
[2025-01-27] MEDS: FERROUS SULFATE 325 MG TABLET PO SCH (09:32)
--- NOTE | 2025-01-27 10:35 | Progress Note ---
Progress Note: Subjective Subjective Interval history: Ms. English has no complaints this morning and sitting in the bed with at bedside. Blood and urine cultures resulted this morning positive for ecoli. We will discontinue levaquin and continue with rocephin. She is on her baseline 3L NC at home but she has occassional drops in oxygen into the 80s. She does admit to chronic whezzing present on exam. [id number] out to Dr. Egan Pulmonology at [facility] for further guidance on OP tx and awaiting call back Exam Constitutional: normal general appearance, distress noted (moderate), average body habitus, no limitations and alert Vital Signs - 24 hr 01/26/25 11:51 01/26/25 12:00 01/26/25 15:53 Temperature 98.4 F Pulse Rate [Left B rachial] 75 Respiratory Rate 19 Blood Pressure [Le ft Arm] 148/73 Pulse Oximetry 95 97 98 Oxygen Delivery Me thod Nasal Cannula Oxygen Flow Rate 3 01/26/25 16:00 01/26/25 19:59 01/26/25 20:38 Temperature 98.8 F 98.1 F Pulse Rate [Left B rachial] 88 88 Respiratory Rate 19 18 Blood Pressure [Le ft Arm] 155/81 161/75 Pulse Oximetry 98 94 L 94 L Oxygen Delivery Me thod Nasal Cannula Oxygen Flow Rate 3 01/26/25 20:38 01/26/25 23:37 01/27/25 00:41 Temperature 98.3 F Pulse Rate [Left B rachial] 81 Respiratory Rate 18 Blood Pressure [Le ft Arm] 146/77 Pulse Oximetry 94 L 98 99 Oxygen Delivery Me thod Nasal Cannula Nasal Cannula Oxygen Flow Rate 2 01/27/25 04:00 01/27/25 07:24 01/27/25 07:45 Temperature 97.9 F 98.6 F Pulse Rate [Left B rachial] 85 77 Respiratory Rate 17 20 Blood Pressure [Le ft Arm] 140/75 129/70 Pulse Oximetry 95 94 L 97 Oxygen Delivery Me thod Nasal Cannula Nasal Cannula Oxygen Flow Rate 3 HENMT: normocephalic, head/scalp atraumatic, hearing grossly normal bilaterally, external ears normal, nasal mucous membranes abnormal (clear) (nasal discharge), external nose normal, oral mucous membranes normal, oropharynx normal, dentition normal and gingiva normal Eyes: PERRL, EOMs intact bilaterally, conjunctivae normal, no scleral icterus, no papilledema, normal visual puente by confrontation, alignment normal, periorbital findings normal and no nystagmus Neck/C-Spine: visual inspection normal, trachea midline, cervical spine nontender, cervical full ROM noted and supple Lymph: no lymphadenopathy noted and no lymphedema noted Chest: inspection of chest normal, inspection of breast(s) abnormal and palpation of breast(s) abnormal Respiratory: breath sounds equal bilaterally, normal respiratory effort, auscultation abnormal (diminished breath sound) (left lower lobe), no wheezes (positive for wheezing), no rales, no retractions and no use of accessory muscles Cardiovascular: normal heart rate noted, regular rhythm noted, no gallop, no rub, no murmur, no JVD, no clicks, peripheral pulses 2+ throughout, no bruits noted and no additional abnormal heart sounds Gastrointestinal: abdomen normal to inspection, abdomen soft to palpation, tender to palpation (diffuse abd pain) (mild), nondistended, normoactive bowel sounds, no hepatosplenomegaly, no masses, no pulsatile mass, no ascites and normal rectal exam (deferred) Genitourinary: no CVA tenderness, bladder normal to palpation, external appearance abnormal, vaginal abnormality noted (deferred), cervical abnormality noted, bimanual exam abnormal and inguinal lymphadenopathy noted Back/Pelvis: spine normal to inspection Extremities: normal to inspection, normal to palpation, no tenderness, full ROM, no joint enlargement and no deformity 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, no movement abnormality noted, no focal motor deficit noted, no sensory deficits noted, gait normal, speech normal, coordination normal, no pronator drift noted, no fasciculations noted and GCS normal Psychiatry: Mental Status Exam documented within this Exam's Psych section mental status grossly normal, oriented x3, thought process normal, cooperative, affect normal, psychomotor activity normal and memory normal Feel stressed/tense/nervous/anxious/difficulty sleeping: to some extent Life stressor details: Current medical condition Skin: skin color normal, no rash, no lesions, no ecchymosis noted, no wounds, no lacerations, skin turgor normal, no jaundice, no petechiae, no mottling, nails normal and no alopecia Progress Note: Objective Labs Labs: CBC 01/27/25 Range/Units 05:10 WBC 10.2 H (4.3-9.3) K/uL RBC 3.6 L (4.00-5.50) M/uL Hgb 11.0 L (12.5-15.8) gm/dL Hct 33.0 L (35.9-46.7) % Plt Count 108 L (152-353) K/uL Gran % 93.9 H (47.8-71.3) % Lymph % (Auto) 2.8 L (20.0-43.0) % [place] % (Auto) 3.3 L (3.6-9.8) % Eos % (Auto) 0.0 L (0.4-2.8) % Baso % (Auto) 0.0 L (0.1-0.85) Lymph # (Auto) 0.3 L (1.1-3.1) [place] # (Auto) 0.3 L (1.1-3.1) Eos # (Auto) 0.0 (0.0-0.2) Baso # (Auto) 0.0 (0.0-0.1) Absolute Gran (auto) 9.6 H (2.3-6.0) CMP 01/27/25 05:10 Sodium 140 Potassium 4.3 Chloride 108.0 H Carbon Dioxide 28 BUN 12 Creatinine 0.6 Glucose 143 H Calcium 8.4 L Urine 01/24/25 12:00 Urine Color Yellow Urine Appearance Hazy Ur Specific [place] 1.025 Urine Protein Negative Urine Glucose (UA) Normal Imaging Chest x-ray: Radiologist's impression: Patient: Vandana English MR#: [id number] : 1955 Acct:[id number] Age/Sex: 69 / F ADM Date: 01/24/25 Loc: ED Attending Dr: Ordering Physician: Stepan Echols NP Date of Service: 01/24/25 Procedure(s): XR chest 1V Accession Number(s): [id number] cc: Stepan Echols NP~ EXAM: XR CHEST 1V HISTORY: Weakness, fever COMPARISON: 10/14/2020 FINDINGS: The trachea is midline. The cardiac silhouette is enlarged with a tortuous thoracic aorta. Scattered airspace disease within left hilar and infrahilar region consistent with developing left lower lobe bronchopneumonia.. The bony thorax is unremarkable. IMPRESSION: Left lower lobe bronchopneumonia. THIS IS AN ELECTRONICALLY VERIFIED FINAL REPORT 01/24/2025 1:15 PM - Electronically signed by Albert Ibrahim MD Dictated By: Albert Ibrahim MD Signed By: 01/24/25 1315 DD/ 1113 TD/TT: 01/24/25 1231 Senior Care Provider: Patient: Vandana English MR#: [id number] : 1955 Acct:[id number] Age/Sex: 69 / F ADM Date: 01/24/25 Loc: [place] 1107-[address]: Yoon Paulson D.O. Ordering Physician: Stepan Echols NP Date of Service: 01/25/25 Procedure(s): XR chest 1V Accession Number(s): [id number] cc: Stepan Echols NP; GERALDINE Bianchi EXAM: CHEST HISTORY: pneumoniapneumonia; COMPARISON: January 24, 2025. TECHNIQUE: Frontal view of the chest was submitted for interpretation. FINDINGS: The cardiomediastinal silhouette is within normal limits. Lungs show mild pulmonary edema. IMPRESSION: Worsening pulmonary edema suspected. THIS IS AN ELECTRONICALLY VERIFIED FINAL REPORT 01/25/2025 11:03 PM - Electronically signed by Marielena Alcala MD Dictated By: Marielena Alcala M.D. Signed By: 01/25/25 2303 DD/ 0916 TD/TT: 01/25/25 0916 Senior Care Provider: Patient: Vandana English MR#: [id number] : 1955 Acct:[id number] Age/Sex: 69 / F ADM Date: 01/24/25 Loc: [place] 1107-[address]: Yoon Paulson D.O. Ordering Physician: Earl Jones NP Date of Service: 01/27/25 Procedure(s): XR chest 2V Accession Number(s): [id number] cc: Earl Jones NP; GERALDINE Bianchi EXAM: XR CHEST 2V HISTORY: PNAPNA; COMPARISON: January 25, 2025 FINDINGS: The trachea is midline. The cardiac silhouette is borderline or mildly enlarged in size. Diaphragms are elevated with diffuse chronic interstitial lung disease. Patchy peribronchial infiltrates are noted at both lungs without pleural effusion. The bony thorax is unremarkable. IMPRESSION: Superimposing bronchopneumonia. Chronic interstitial lung disease. THIS IS AN ELECTRONICALLY VERIFIED FINAL REPORT 01/27/2025 1:17 PM - Electronically signed by Guerda Trinidad MD Dictated By: Guerda Trinidad M.D. Signed By: 01/27/25 [id number] Progress Note: A&P Assessment and Plan (1) Left lower lobe pneumonia: Assessment and Plan: Rocephin 1gm IV daily Complete Zithromax 500mg IV daily CXR today D/C Levaquin Qualifiers: Pneumonia type: due to unspecified organism Qualified Code(s): J18.9 - Pneumonia, unspecified organism (2) Cirrhosis of liver: Assessment and Plan: Stable Qualifiers: Ascites presence: without ascites Hepatic cirrhosis type: unspecified hepatic cirrhosis Qualified Code(s): K74.60 - Unspecified cirrhosis of liver (3) UTI (urinary tract infection): Assessment and Plan: Rocephin 1gm IV daily (4) Lupus: Assessment and Plan: Cellcept 1gm po BID (5) Interstitial lung disease: Assessment and Plan: Ofev 150mg po BID O2 2L (6) Hypokalemia: Assessment and Plan: Resolved (7) Hypoalbuminemia: Assessment and Plan: Encourage nutrition (8) Bacteremia: Assessment and Plan: Rocephin 1gm IV daily Plan Admit VS q4hrs O2 3L NC Culture reports Regular diet CBC BMP in AM Fall Risk Details Grady Fall Scale Risk Level: Moderate Fall Risk Current Medications: Current Medications Acetaminophen (Acetaminophen 325 Mg Tablet) 650 mg PO Q6H PRN PRN Reason: Pain Last Admin: 01/25/25 19:40 Dose: 650 mg Albuterol Sulfate (Ipratropium/Albuterol Sulfate 3 Ml Ampul.Neb) 3 ml INH Q4H [facility] Last Admin: 01/27/25 07:24 Dose: 3 ml Ascorbic Acid (Ascorbic Acid 500 Mg Tablet) 500 mg PO DAILY [facility] Last Admin: 01/27/25 09:31 Dose: 500 mg Aspirin (Aspirin 81 Mg Tab.Chew) 81 mg PO DAILY [facility] Last Admin: 01/27/25 09:31 Dose: 81 mg Atorvastatin Calcium (Atorvastatin Calcium 10 Mg Tablet) 10 mg PO DAILY [facility] Last Admin: 01/27/25 09:31 Dose: 10 mg Budesonide (Budesonide 0.5 Mg/2 Ml Ampul.Neb) 1 mg INH RBID [facility] Last Admin: 01/27/25 07:23 Dose: 1 mg Carvedilol (Carvedilol 6.25 Mg Tablet) 6.25 mg PO 2100 [facility] Last Admin: 01/26/25 21:05 Dose: 6.25 mg Docusate Sodium (Docusate Sodium 100 Mg Capsule) 100 mg PO DAILY PRN PRN Reason: Constipation Enoxaparin Sodium (Enoxaparin Sodium 40 Mg/0.4 Ml Syringe) 40 mg SUBQ DAILY [facility] Last Admin: 01/27/25 09:32 Dose: 40 mg Ferrous Sulfate (Ferrous Sulfate 325 Mg Tablet) 325 mg PO DAILY [facility] Last Admin: 01/27/25 09:32 Dose: 325 mg Folic Acid (Folic Acid 1 Mg Tablet) 1 mg PO DAILY [facility] Last Admin: 01/27/25 09:32 Dose: 1 mg Guaifenesin/Codeine Phosphate (Codeine Phosphate/Guaifenesin 200/20 Mg/ 10 Ml Liquid) 5 ml PO Q8H PRN PRN Reason: Cough Last Admin: 01/27/25 03:46 Dose: 5 ml Promethazine HCl 25 mg/ Sodium (Chloride) 51 mls @ 200 mls/hr IV Q8H PRN PRN Reason: Nausea And Vomiting Ceftriaxone Sodium 1 gm/ (Sodium Chloride) 50 mls @ 100 mls/hr IV DAILY [facility] Last Admin: 01/27/25 09:31 Dose: 100 mls/hr Acetaminophen (Acetaminophen 1000 Mg/100 Ml) 1,000 mg in 100 mls @ 400 mls/hr IV Q6H PRN PRN Reason: Pain Last Admin: 01/25/25 07:26 Dose: 400 mls/hr Ketorolac Tromethamine (Ketorolac 30 Mg/Ml Inj Vial) 15 mg IVP Q6H PRN PRN Reason: Moderate Pain Scale 5-7/fever Stop: 01/29/25 14:59 Last Admin: 01/25/25 22:30 Dose: 15 mg Magnesium Hydroxide (Magnesium, Aluminum Hydroxide 30 Ml Oral.Susp) 30 ml PO DAILY PRN PRN Reason: Heartburn Last Admin: 01/26/25 01:16 Dose: 30 ml Methylprednisolone Sodium Succinate (Methylprednisolone Sod Succ/Pf 40 Mg/Ml Vial) 40 mg INJ TID [facility] Montelukast Sodium (Montelukast Sodium 10 Mg Tablet) 10 mg PO DAILY [facility] Last Admin: 01/27/25 09:32 Dose: 10 mg Morphine Sulfate (Morphine Sulfate 2 Mg/Ml Cartridge) 2 mg IV Q4H PRN PRN Reason: Severe Pain SCALE 8-10 Methenamine Hippurate 1 Gram Tablet 1 gm PO Q12H [facility] Last Admin: 01/26/25 22:42 Dose: 1 gm Mirabegron 50 Mg Tablet Extended Release 24 Hr 50 mg PO Q24H [facility] Last Admin: 01/26/25 10:07 Dose: 50 mg Nintedanib [Ofev] (150 Mg Capsule) 150 mg PO Q12H [facility] Last Admin: 01/26/25 22:43 Dose: Not Given Non-Formulary Medication (Mycophenolae Mofetil) 1,000 mg PO BID [facility] Last Admin: 01/27/25 09:33 Dose: 1,000 mg Non-Formulary Medication (Mycophenolate Mofetil) 1,000 mg PO BID [facility] Ondansetron HCl (Ondansetron Hcl/Pf 4 Mg/2 Ml Vial) 4 mg INJ Q6H PRN PRN Reason: Nausea And Vomiting Pantoprazole Sodium (Pantoprazole Sodium 40 Mg Tablet.Dr) 40 mg PO BID [facility] Last Admin: 01/27/25 09:32 Dose: 40 mg Pregabalin (Pregabalin 75 Mg Capsule) 150 mg PO BID [facility] Last Admin: 01/27/25 09:32 Dose: 150 mg Time Spent With Patient Time: Total time spent is greater than 50% in coordination of care (as documented) at patient's floor/unit and/or counseling patient:
[2025-01-27] MEDS: METHYLPREDNISOLONE SOD SUCC/PF 40 MG/ML VIAL INJ SCH (15:07)
[2025-01-27] MEDS: ATORVASTATIN CALCIUM 10 MG TABLET PO SCH (20:10)
[2025-01-28 03:35] VITALS: RESP 18
[2025-01-28] MEDS: CODEINE PHOSPHATE/GUAIFENESIN 200/20 MG/ 10 ML LIQUID PO PRN (06:26)
[2025-01-28 07:22] LABS: Basophils%(Percent) Auto 0.2 (0.1-0.85); Granulocytes % - Auto 87.6 % (47.8-71.3); Granulocytes#(Absolute)- Auto 5.9 (2.3-6.0); Hematocrit 33.6 % (35.9-46.7); Monocytes #(Absolute)- Auto 0.6 (1.1-3.1); Monocytes %(Percent)- Auto 8.5 % (3.6-9.8); Platelet Count 111 K/uL (152-353); White Blood Count 6.7 K/uL (4.3-9.3)
[2025-01-28 07:59] VITALS: BP 143/73; PULSE 70; TEMP 98.6
[2025-01-28] MEDS ORDERED: predniSONE 20 MG TABLET PO SCH (09:15)
--- NOTE | 2025-01-28 09:26 | Discharge Summary ---
DS: Providers Provider Date of admission: 01/24/25 16:00 Primary care physician: Mar Denton DS: Diagnosis Discharge Diagnosis (1) Left lower lobe pneumonia: Qualifiers: Pneumonia type: due to unspecified organism Qualified Code(s): J18.9 - Pneumonia, unspecified organism (2) Cirrhosis of liver: Qualifiers: Ascites presence: without ascites Hepatic cirrhosis type: unspecified hepatic cirrhosis Qualified Code(s): K74.60 - Unspecified cirrhosis of liver (3) UTI (urinary tract infection): (4) Lupus: (5) Interstitial lung disease: (6) Hypokalemia: (7) Hypoalbuminemia: (8) Bacteremia: DS: Summary Hospital Course Hospital Course: Ms. English was admitted on 01/24/25 referred from PCP with complaint of fever, body aches, and SOB. CXR did find pneumonia, urinalysis was positive for UTI with positive nitrates. WBC elevated at 13.2. Temperature on admit was 102.2. She was started on rocephin and zithromax with the addition of levaquin throughout her stay. She has history of interstitual lung disease, lupus, and cirrhosis and has been followed by [facility]. Nebulizers with additional steriods were added to her regimen due to underlying conditions. Blood and urine cultures did return postive for E. Coli sensitve to rocephin, intermediate to levaquin. She did improve clinically throughout her stay despite pneumonia on CXR. [facility] pulmonology was contacted and they request that patient stop cellcept during her course of abx. Patient was discharged on 01/28/25 on cipro and cefdinir to complete, follow up with PCP in 1 week, and pulmonology as scheduled. Status at Discharge Functional status at discharge: independent ambulation Overall status at discharge: patient is progressing back to baseline Time Spent with Patient Time attestation: Total time spent providing and/or coordinating discharge services: 35 Time spent: greater than 30 minutes Exam Constitutional: normal general appearance, distress noted (moderate), average body habitus, no limitations and alert Vital Signs - 24 hr 01/27/25 11:07 01/27/25 11:54 01/27/25 15:09 Temperature 98.7 F Pulse Rate Pulse Rate [Left B rachial] 98 H Respiratory Rate 20 Blood Pressure Blood Pressure [Le ft Arm] 139/78 Pulse Oximetry 93 L 94 L 98 Oxygen Delivery Me thod Nasal Cannula Oxygen Flow Rate 3 Fraction of Inspir ed Oxygen 01/27/25 16:16 01/27/25 19:17 01/27/25 20:10 Temperature 98.0 F 98.4 F Pulse Rate 88 Pulse Rate [Left B rachial] 92 H 88 Respiratory Rate 18 19 Blood Pressure 137/74 Blood Pressure [Le ft Arm] 130/66 137/74 Pulse Oximetry 95 95 Oxygen Delivery Me thod Nasal Cannula Nasal Cannula Oxygen Flow Rate 3 Fraction of Inspir ed Oxygen 01/27/25 20:26 01/27/25 20:26 01/27/25 23:27 Temperature 98.2 F Pulse Rate Pulse Rate [Left B rachial] 78 Respiratory Rate 20 Blood Pressure Blood Pressure [Le ft Arm] 126/67 Pulse Oximetry 96 96 96 Oxygen Delivery Me thod Nasal Cannula Nasal Cannula Oxygen Flow Rate 3 Fraction of Inspir ed Oxygen 32 01/28/25 03:35 01/28/25 07:58 01/28/25 08:39 Temperature 98.2 F 98.6 F Pulse Rate Pulse Rate [Left B rachial] 63 70 Respiratory Rate 18 18 Blood Pressure Blood Pressure [Le ft Arm] 112/62 143/73 Pulse Oximetry 97 91 L 97 Oxygen Delivery Me thod Nasal Cannula Nasal Cannula Oxygen Flow Rate 3 Fraction of Inspir ed Oxygen HENMT: normocephalic, head/scalp atraumatic, hearing grossly normal bilaterally, external ears normal, nasal mucous membranes abnormal (clear) (nasal discharge), external nose normal, oral mucous membranes normal, oropharynx normal, dentition normal and gingiva normal Eyes: PERRL, EOMs intact bilaterally, conjunctivae normal, no scleral icterus, no papilledema, normal visual [place] by confrontation, alignment normal, periorbital findings normal and no nystagmus Neck/C-Spine: visual inspection normal, trachea midline, cervical spine nontender, cervical full ROM noted and supple Lymph: no lymphadenopathy noted and no lymphedema noted Chest: inspection of chest normal, inspection of breast(s) abnormal and palpation of breast(s) abnormal Respiratory: breath sounds equal bilaterally, normal respiratory effort, auscultation abnormal (diminished breath sound) (left lower lobe), no wheezes (positive for wheezing), no rales, no retractions and no use of accessory muscles Cardiovascular: normal heart rate noted, regular rhythm noted, no gallop, no rub, no murmur, no JVD, no clicks, peripheral pulses 2+ throughout, no bruits noted and no additional abnormal heart sounds Gastrointestinal: abdomen normal to inspection, abdomen soft to palpation, tender to palpation (diffuse abd pain) (mild), nondistended, normoactive bowel sounds, no hepatosplenomegaly, no masses, no pulsatile mass, no ascites and normal rectal exam (deferred) Genitourinary: no CVA tenderness, bladder normal to palpation, external appearance abnormal, vaginal abnormality noted (deferred), cervical abnormality noted, bimanual exam abnormal and inguinal lymphadenopathy noted Back/Pelvis: spine normal to inspection Extremities: normal to inspection, normal to palpation, no tenderness, full ROM, no joint enlargement and no deformity 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: 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, no movement abnormality noted, no focal motor deficit noted, no sensory deficits noted, gait normal, speech normal, coordination normal, no pronator drift noted, no fasciculations noted and GCS normal Psychiatry: Mental Status Exam documented within this Exam's Psych section mental status grossly normal, oriented x3, thought process normal, cooperative, affect normal, psychomotor activity normal and memory normal Feel stressed/tense/nervous/anxious/difficulty sleeping: to some extent Life stressor details: Current medical condition Skin: skin color normal, no rash, no lesions, no ecchymosis noted, no wounds, no lacerations, skin turgor normal, no jaundice, no petechiae, no mottling, na ils normal and no alopecia DS: Data Data Completed and Pending Labs on day of discharge: Labs from last 24 hours 01/28/25 07:15 WBC 6.7 RBC 3.7 L Hgb 11.0 L Hct 33.6 L MCV 92.0 MCH 30.1 MCHC 32.7 L RDW 15.6 H Plt Count 111 L MPV 8.7 Gran % 87.6 H Lymph % (Auto) 3.7 L [place] % (Auto) 8.5 Eos % (Auto) 0.0 L Baso % (Auto) 0.2 Lymph # (Auto) 0.2 L [place] # (Auto) 0.6 L Eos # (Auto) 0.0 Baso # (Auto) 0.0 Absolute Gran (auto) 5.9 Sodium 142 Potassium 4.0 Chloride 106.0 Carbon Dioxide 35 H Anion Gap 1.0 L BUN 11 Creatinine 0.5 L Estimated GFR 100.8 Glucose 120 H Calcium 8.3 L Discharge Plan Discharge Disposition: Home, Self-Care Condition: Stable Discharge Medications: New ciprofloxacin HCl [Cipro] 500 mg tablet 500 mg PO BID Qty: 14 0RF cefdinir 300 mg capsule 300 mg PO BID Qty: 14 0RF prednisone 10 mg tablet 20 mg PO BID Qty: 16 0RF Rx Instructions: 2 tabs BID x 2 days, then 1 tab BID x 2 days, then 1 tab daily x 2 days, then 1/2 tab daily Continued atorvastatin 10 mg tablet 10 mg PO DAILY carvedilol 6.25 mg tablet 6.25 mg PO DAILY folic acid 1 mg tablet 1 mg PO DAILY levocetirizine 5 mg tablet 5 mg PO DAILY methenamine hippurate 1 gram tablet 1 g PO Q12H mirabegron 50 mg tablet extended release 24 hr 50 mg PO Q24H montelukast 10 mg tablet 10 mg PO DAILY Ofev 150 mg capsule 150 mg PO Q12H pantoprazole 40 mg tablet,delayed release (DR/EC) 40 mg PO DAILY ipratropium bromide 42 mcg (0.06 %) spray,non-aerosol 2 spray INTRANASAL BID pregabalin 150 mg capsule 150 mg PO BID ferrous sulfate [FeroSul] 325 mg (65 mg iron) tablet 325 mg PO DAILY aspirin 81 mg tablet,delayed release (DR/EC) 81 mg PO DAILY ascorbic acid (vitamin C) [C-500] 500 mg tablet 500 mg PO DAILY calcium carbonate-vitamin D3 [Calcium 600 + D(3)] 600 mg-10 mcg (400 unit) tablet 1 tab PO BID Held prednisone 5 mg tablet 5 mg PO DAILY Hold Instructions: Resume on 01/28/25. continue taper to 5mg then resume dose mycophenolate mofetil 500 mg tablet 1,000 mg PO BID Hold Instructions: Resume on 02/04/25. Resume after antibiotics Patient Comments: TAKE 2 TABLETS (1,000 MG) BY MOUTH TWICE DAILY. Discharge Orders: Discharge Order (Routine); Ordered 01/28/25 Ordered By: aErl Jones Activity: resume usual activities as tolerated and wear oxygen at all times Diet: regular diet Interventions: Discharge Assessment Last Done: 01/28/25 09:57 MED/SURG & ICU Observation Charge Sheet Last Done: 01/28/25 09:59 Patient Instructions: Urinary Tract Infection in Women (DC), Community Acquired Pneumonia (DC), Bacteremia (DC) Activity Restrictions/Additional Instructions: RESUME HOME MEDICATIONS DIRECTED PRIOR TO ADMISSION CONTINUE TO HOLD MYCOPHENOLATE FOR ONE WEEK AFTER COMPLETION OF ANTIBIOTICS FOLLOW-UP WITH MAR DENTON FOLLOW-UP WITH EMPLOYEE ADVISER TAKE NEW MEDICATIONS DIRECTED UNTIL COMPLETE Forms: Portal/Health Info Access Inst Follow-Ups: Mar Denton [Primary Care Provider, Medical] Discharge Date/Time: 01/28/25 10:20
== END 2025-01-28 10:20 | disposition home or self-care (01) | DRG 194 ==
LOC: ED 11:35 → MS 11:35 → OBSVTOIN 16:00 → MS 16:17
PROVIDERS: ADMIT Family Medicine; ATTEND Family Medicine
DX: E88.09 Other disorders of plasma-protein metabolism, not elsewhere classified; R78.81 Bacteremia; Z88.1 Allergy status to other antibiotic agents; E87.6 Hypokalemia; Z88.8 Allergy status to other drugs, medicaments and biological substances; K74.60 Unspecified cirrhosis of liver; Z88.5 Allergy status to narcotic agent; Z79.899 Other long term (current) drug therapy; B96.20 Unspecified Escherichia coli [E. coli] as the cause of diseases classified elsewhere; J18.9 Pneumonia, unspecified organism; N39.0 Urinary tract infection, site not specified

== ENCOUNTER 2025-02-12 20:34 | Inpatient (IN) ==
[2025-02-12] MEDS ORDERED: IPRATROPIUM/ALBUTEROL SULFATE 3 ML AMPUL.NEB INH ONE (20:46)
[2025-02-12 20:47] LABS: Basophils%(Percent) Auto 0.4 (0.1-0.85); Eosinophils%(Percent) Auto 0.3 % (0.4-2.8); Granulocytes % - Auto 96.2 % (47.8-71.3); Granulocytes#(Absolute)- Auto 9.1 (2.3-6.0); Hematocrit 39.8 % (35.9-46.7); Mean Corpuscular Volume 92.5 fl (81.0-93.7); Monocytes #(Absolute)- Auto 0.1 (1.1-3.1); Monocytes %(Percent)- Auto 0.9 % (3.6-9.8); Platelet Count 171 K/uL (152-353); White Blood Count 9.4 K/uL (4.3-9.3)
[2025-02-12] MEDS ORDERED: levalbuterol HCL 1.25 MG/3 ML VIAL.NEB ONE (20:48)
[2025-02-12] MEDS: ASPIRIN 81 MG TAB.CHEW PO ONE (20:53)
[2025-02-12] MEDS ORDERED: ASPIRIN 81 MG TAB.CHEW ONE (20:53)
[2025-02-12] MEDS ORDERED: NITROGLYCERIN 1 GM OINT...G. TD ONE (20:53)
[2025-02-12] MEDS: NITROGLYCERIN 1 GM OINT...G. TD ONE (20:54)
[2025-02-12 20:57] LABS: Potassium 3.5 mmol/L (3.6-5.2)
[2025-02-12] MEDS ORDERED: 0.9 % SODIUM CHLORIDE 500 ML IV ONE (21:04)
--- NOTE | 2025-02-12 21:16 | Emergency Department Note ---
HPI - General Adult General Chief complaint: SOB -Shortness of Breath Stated complaint: SOB Time Seen by Provider: 02/12/25 20:46 Source: patient Mode of arrival: ambulance Limitations: no limitations History of Present Illness HPI narrative: This is a 69 year old female patient with c/o cough, chest pain, congestion, SOB with a hx of interstitial lung disease. Patient wears home O2 4LNC. Per EMS patient O2 sat on their arrival was in the 70's on 4LNC and then they placed her on non rebreather and O2 sats came up to 90-93%. EMS gave 125mg of Solumedrol IV MANAGER PRODUCTION to ER. Patient denies any abdominal pain, back pain, fever, chills, numbness, tingling, weakness or N/V/D Location: Reports chest Radiation: Reports non-radiation Severity: mild Quality: Reports aching Pain Consistency: Reports constant Relieving factors: Reports none Exacerbating factors: Reports none Associated symptoms: Reports chest pain, cough and shortness of breath Treatments prior to arrival: Reports other (solumedrol ) Related Data Home Medications Medication Instructions Recorded Confirmed atorvastatin 10 mg tablet 10 mg PO DAILY 01/24/2501/09 carvedilol 6.25 mg tablet 6.25 mg PO DAILY 01/24/25 folic acid 1 mg tablet 1 mg PO DAILY 01/24/2501/24 levocetirizine 5 mg tablet 5 mg PO DAILY 01/24/2501/09 methenamine hippurate 1 gram tablet 1 g PO Q12H 01/24/25 mirabegron 50 mg tablet,extended 50 mg PO Q24H 5 01/24/25 release 24 hr montelukast 10 mg tablet 10 mg PO DAILY 01/24/2501/09 nintedanib 150 mg capsule (Ofev) 150 mg PO Q12H 01/24/25 pantoprazole 40 mg tablet,delayed 40 mg PO DAILY 01/2401/24/25 release prednisone 5 mg tablet 5 mg PO DAILY 01/24/2501/24 Held on 01/28/25. Instructions: Resume on 01/28/25. continue taper to 5mg then resume dose ascorbic acid (vitamin C) 500 mg 500 mg PO DAILY 01/2701/27/25 tablet (C-500) aspirin 81 mg tablet,delayed 81 mg PO DAILY 01/27/25 0 01/27/25 release calcium 600 mg (as 1 tab PO BID 01/27/25 carbonate)-vitamin D3 10 mcg (400 unit) tablet (Calcium 600 + D(3)) ferrous sulfate 325 mg (65 mg 325 mg PO DAILY 01/27/25 01/27/25 iron) tablet (FeroSul) ipratropium bromide 42 mcg (0.06 2 spray intranasal BI D 01/27/25 01/27/25 %) nasal spray mycophenolate mofetil 500 mg tablet 1,000 mg PO BID 01/27/25 Held on 01/28/25. Instructions: Resume on 02/04/25. Resume after antibiotics pregabalin 150 mg capsule 150 mg PO BID 01/27/2501/27 Previous Rx's Medication Instructions Recorded cefdinir 300 mg capsule 300 mg PO BID #14 caps 01/28 ciprofloxacin HCl 500 mg tablet 500 mg PO BID #14 tabs 01/28/25 (Cipro) prednisone 10 mg tablet 20 mg (2 x 10 mg) PO BID #16 tabs 01/28/25 Allergies Allergy/AdvReac Type Severity Reaction Status Date / Time amoxicillin (From Augmentin) Allergy Verified 02/12/25 21:29 clavulanic acid (From Allergy Verified 02/12/25 21:29 Augmentin) quinine Allergy Verified 02/12/25 21:29 sulfamethoxazole (From Allergy Verified 02/12/25 21:29 Bactrim) trimethoprim (From Bactrim) Allergy Verified 02/12/25 21:29 vonoprazan Allergy Verified 02/12/25 21:29 Review of Systems Status of ROS 10 or more systems reviewed and unremark able except as noted in history and below Constitutional Denies: fever, chills, change in weight, fatigue, malaise, night sweats or change in sleep pattern Eyes Denies: change in vision, blurry vision, blind spots, light sensitivity or eye discomfort Ears, nose, mouth, and throat Denies: throat pain, neck pain, throat swelling, difficulty swallowing, hoarseness, mouth pain or swelling of lips/tongue Cardiovascular Reports: chest pain, shortness of breath with exertion and shortness of breath when lying down; Denies: palpitations, edema, swelling of feet/ankles, lightheadedness, leg pain with exertion or bluish discoloration of hands/feet Respiratory Reports: shortness of breath and cough; Denies: wheezing, stridor, pain on inspiration, change in phlegm color, coughing up blood or chest congestion Gastrointestinal Denies: abdominal pain, nausea, vomiting, coffee grounds in vomit, heartburn, diarrhea or constipation Genitourinary Denies: painful urination, urinary frequency, urinary urgency, urinary incontinence, blood in urine, difficulty voiding or decreased urine ouput Musculoskeletal Denies: back pain, neck pain, extremity pain, extremity swelling, joint pain or limited range of motion Integumentary/Breast Denies: rash, itching, redness, skin pain, skin tenderness, skin swelling or sores Neurological Denies: headache, numbness in extremities, weakness in extremities, lack of coordination, dizziness, vertigo or confusion Psychiatric Denies: anxiety, mood swings, panic attacks, change in sleep pattern, hopelessness or loss of interest Endocrine Denies: excessive urination, excessive thirst, fatigue, cold intolerance or excessive sweating Hematologic/Lymphatic Denies: easy bruising, easy bleeding or enlarged lymph nodes Allergic/Immunologic Denies: hives, throat swelling, tongue swelling, facial swelling or wheezing PFSH PFS Medical History (Updated 02/05/25 @ 00:00 by ) Bacteremia Hypoalbuminemia Cirrhosis of liver Lupus Interstitial lung disease Surgical History H/O total knee replacement Hx of bladder repair surgery H/O total hysterectomy History of section Social History Smoking status: unknown if ever smoked What is your current living situation: I presently have a place to live Problems where you live: no known problems Highest level of school completed/degree received: high school Feel stressed/tense/nervous/anxious/difficulty sleeping: to some extent Life stressors: other Life stressor details: Current medical condition Exam Constitutional: normal general appearance and no apparent distress Vital Signs - 24 hr 02/12/25 20:34 02/12/25 20:37 02/12/25 20:40 Temperature 98.2 F Pulse Rate 130 H 120 H 112 H Respiratory Rate 36 H 32 H 28 H Blood Pressure 147/71 Pulse Oximetry 83 L 91 L 97 Oxygen Delivery Me thod Non Rebreather Non Rebreather Non Rebreather Oxygen Flow Rate Fraction of Inspir ed Oxygen 02/12/25 20:54 02/12/25 22:34 Temperature Pulse Rate Respiratory Rate Blood Pressure 148/70 Pulse Oximetry 94 L Oxygen Delivery Me thod High Flow Nasal [place] Oxygen Flow Rate 20 Fraction of Inspir ed Oxygen 50 HENMT: normocephalic, head/scalp atraumatic, hearing grossly normal bilaterally, external ears normal, EACs normal, nasal mucous membranes normal, external nose normal, oral mucous membranes normal and oropharynx normal Eyes: PERRL, EOMs intact bilaterally, conjunctivae normal and no scleral icterus Neck/C-Spine: visual inspection normal and trachea midline Lymph: no lymphadenopathy noted Chest: inspection of chest normal and palpation of chest normal Respiratory: breath sounds equal bilaterally, normal respiratory effort, auscultation abnormal (diminished breath sound), wheezing noted (diffuse), no rales, no retractions, no use of accessory muscles and chest percussion normal Cardiovascular: heart rate abnormal (tachycardic), regular rhythm noted, no gallop, no rub, no murmur, no JVD, no clicks, peripheral pulses 2+ throughout, no bruits noted and no additional abnormal heart sounds Gastrointestinal: abdomen normal to inspection, abdomen soft to palpation, nontender to palpation, nontender to percussion, nondistended, normoactive bowel sounds, no hepatosplenomegaly, no masses, no pulsatile mass, no ascites and no hernia Genitourinary: no CVA tenderness Back/Pelvis: spine normal to inspection Extremities: normal to inspection, normal to palpation, no tenderness, full ROM, no joint enlargement and no deformity 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 VSS, no s/s of acute distress noted Vital Signs Vital signs: Vital Signs Temperature 98.2 F 02/12/25 20:34 Pulse Rate 130 H 02/12/25 20:34 Respiratory Rate 36 H 02/12/25 20:34 Blood Pressure 147/71 02/12/25 20:34 Pulse Oximetry 83 L 02/12/25 20:34 Oxygen Delivery Method Non Rebreather 02/12/25 20:34 Temperature 98.2 F 02/12/25 20:34 Pulse Rate 112 H 02/12/25 20:40 Respiratory Rate 28 H 02/12/25 20:40 Blood Pressure 148/70 02/12/25 20:54 Pulse Oximetry 94 L 02/12/25 22:34 Oxygen Delivery Method High Flow Nasal Cannula 02/12/25 22:34 Oxygen Flow Rate 20 02/12/25 22:34 Fraction of Inspired Oxygen 50 02/12/25 22:34 Medical Decision Making Differential Diagnosis Differential Diagnosis: viral illness Medical Records Medical records reviewed: Yes I reviewed the patient's medical records Lab Data Lab results reviewed: Yes I reviewed the patient's lab results Labs: Lab Results 02/12/25 02/12/25 02/12/25 Range/Units 20:30 22:37 22:37 WBC 9.4 H (4.3-9.3) K/uL RBC 4.3 (4.00-5.50) M/uL Hgb 12.8 (12.5-15.8) gm/dL Hct 39.8 (35.9-46.7) % MCV 92.5 (81.0-93.7) fl MCH 29.7 (27.6-32.2) pg MCHC 32.1 L (33.1-35.3) g/dl RDW 15.9 H (11.4-14.2) % Plt Count 171 (152-353) K/uL MPV 8.4 (6.9-10.8) fl Gran % 96.2 H (47.8-71.3) % Lymph % (Auto) 2.2 L (20.0-43.0) % [place] % (Auto) 0.9 L (3.6-9.8) % Eos % (Auto) 0.3 L (0.4-2.8) % Baso % (Auto) 0.4 (0.1-0.85) Lymph # (Auto) 0.2 L (1.1-3.1) [place] # (Auto) 0.1 L (1.1-3.1) Eos # (Auto) 0.0 (0.0-0.2) Baso # (Auto) 0.0 (0.0-0.1) Absolute Gran (auto) 9.1 H (2.3-6.0) D-Dimer 1270 H (100-600) ng/mL ABG pH 7.53 H (7.35-7.45) ABG pCO2 48 H (35-45) mmHg ABG pO2 53 L* 653 (60-100) mmHg ABG PO2/FiO2 Ratio 0.08 ABG HCO3 40.1 H (22-26) mmo1/L ABG Total CO2 41.6 mmo1/L ABG O2 Saturation 91 L (92-100) % ABG Base Excess 15.4 H* (-2-2) mmo1/L A-a O2 Gradient 600 mmHg Respiratory Index 11.3 H (0-1) FiO2 100 % Sodium 144 (136-145) mmol/L Potassium 3.5 L (3.6-5.2) mmol/L Chloride 104.0 (98-107) mmol/L Carbon Dioxide 38 H (21-32) mmol/L Anion Gap 2.0 L (4-14) mEq/L BUN 20 H (7-18) mg/dL Creatinine 0.8 (0.6-1.3) mg/dL Estimated GFR 79.2 (>59.9) Glucose 101 (70-110) mg/dL Calcium 9.3 (8.5-10.1) mg/dL Total Bilirubin 0.74 (0.0-1.0) mg/dL AST 39 H (15-37) U/L ALT 50 (30-65) U/L Alkaline Phosphatase 141 H (50-136) U/L Troponin I High Sens 16.70 (4.0-60.4) ng/L B-Natriuretic Peptide 66.2 (0-100) pg/mL Total Protein 6.9 (6.4-8.2) g/dL Albumin 2.9 L (3.4-5.0) g/dL Imaging Data CT scan - chest: Attestation: I have reviewed the pertinent imaging results. ECG Data Attestation: I have reviewed the pertinent ECG results. Discharge Plan Discharge Patient Disposition: Admitted As Observation Condition: Stable Clinical Impression: Hypoxia, Chest pain, Dyspnea, Pneumonia Time of Disposition: 23:33
[2025-02-12 22:55] LABS: PCO2 ABG 48 mmHg (35-45); pH ABG 7.53 (7.35-7.45)
[2025-02-12 22:56] LABS: Base Excess ABG 15.4 mmo1/L (-2-2); Oxygen Saturation ABG 91 % (92-100); PO2 ABG 53 mmHg (60-100)
[2025-02-13] MEDS ORDERED: ACETAMINOPHEN 500 MG TABLET PO PRN (00:53)
[2025-02-13] MEDS ORDERED: MAGNESIUM, ALUMINUM HYDROXIDE 30 ML ORAL.SUSP PO PRN (00:53)
[2025-02-13] MEDS ORDERED: METHENAMINE HIPPURATE 1 GM PO SCH (00:53)
[2025-02-13] MEDS ORDERED: DOCUSATE SODIUM 100 MG CAPSULE PO PRN (00:53)
[2025-02-13] MEDS: IPRATROPIUM/ALBUTEROL SULFATE 3 ML AMPUL.NEB INH SCH (01:08)
[2025-02-13 04:31] LABS: Basophils #(Absolute) Auto 0.1 (0.0-0.1); Basophils%(Percent) Auto 0.4 (0.1-0.85); Granulocytes % - Auto 96.9 % (47.8-71.3); Granulocytes#(Absolute)- Auto 17.5 (2.3-6.0); Hematocrit 33.2 % (35.9-46.7); Mean Corpuscular Volume 91.6 fl (81.0-93.7); Monocytes #(Absolute)- Auto 0.4 (1.1-3.1); Monocytes %(Percent)- Auto 2.3 % (3.6-9.8); Platelet Count 111 K/uL (152-353); White Blood Count 18.1 K/uL (4.3-9.3)
[2025-02-13 04:48] LABS: Potassium 3.5 mmol/L (3.6-5.2)
[2025-02-13] MEDS: METHYLPREDNISOLONE SOD SUCC/PF 40 MG/ML VIAL INJ SCH ×2 (05:32→09:49)
[2025-02-13] MEDS: carvediloL 6.25 MG TABLET PO SCH (09:06)
[2025-02-13] MEDS: ASPIRIN 81 MG TABLET.DR PO SCH (09:06)
[2025-02-13] MEDS: ATORVASTATIN CALCIUM 10 MG TABLET PO SCH (09:06)
[2025-02-13] MEDS: METHENAMINE HIPPURATE 1 GM PO SCH (10:07)
[2025-02-13] MEDS: levalbuterol HCL 1.25 MG/3 ML VIAL.NEB INH ONE (10:47)
[2025-02-13] MEDS: LEVOFLOXACIN/D5W 500 MG/100 ML 500 MG/100 ML PIGGYBACK IV ONE (10:48)
--- NOTE | 2025-02-13 11:14 | History & Physical Report ---
H&P: HPI History of Present Illness Chief complaint: chest pain, hypoxia, pneumonia Narrative: Ms. English was admitted on 02/12/25 from the ED where she was at home with a sudden onset of SOB. She was just admitted in January with PNA and postive blood cultures for E. Coli. She sees Pulmonology at [facility] for interstitial lung disease and lupus and will be going back March 11. Oxygen saturation at home was 64% on 4L NC, when on arrival to ED she was placed on hiflo oxygen currently on . CBC unremarkable although WBC elevated this morning to 18 after receiving solumedrol in the ED. She is on maintenace prednisone currently on 40mg and supposed to decrease to 30mg po daily today. She was discharged weeks ago on 40mg po daily. PH 7.53, O2 53. CMP UA were unremarkable. Review of Systems Status of ROS 10 or more systems reviewed and unremark able except as noted in history and below Constitutional Denies: fever, chills, change in weight, fatigue, malaise, night sweats or change in sleep pattern Eyes Denies: change in vision, blurry vision, blind spots, light sensitivity or eye discomfort Ears, nose, mouth, and throat Denies: throat pain, neck pain, throat swelling, difficulty swallowing, hoarseness, mouth pain, swelling of lips/tongue or vertigo Cardiovascular Reports: chest pain, shortness of breath with exertion and shortness of breath when lying down; Denies: palpitations, edema, swelling of feet/ankles, lightheadedness, leg pain with exertion or bluish discoloration of hands/feet Respiratory Reports: shortness of breath and cough; Denies: wheezing, stridor, pain on inspiration, change in phlegm color, coughing up blood or chest congestion Gastrointestinal Denies: abdominal pain, nausea, vomiting, coffee grounds in vomit, heartburn, diarrhea, constipation or difficulty swallowing Genitourinary Denies: painful urination, urinary frequency, urinary urgency, urinary incontinence, blood in urine, difficulty voiding or decreased urine ouput Musculoskeletal Denies: back pain, neck pain, extremity pain, extremity swelling, joint pain or limited range of motion Integumentary/Breast Denies: rash, itching, redness, skin pain, skin tenderness, skin swelling or sores Neurological Denies: headache, numbness in extremities, weakness in extremities, lack of coordination, dizziness, vertigo or confusion Psychiatric Denies: anxiety, mood swings, panic attacks, change in sleep pattern, hopelessness or loss of interest Endocrine Denies: excessive urination, excessive thirst, fatigue, cold intolerance or excessive sweating Hematologic/Lymphatic Denies: easy bruising, easy bleeding or enlarged lymph nodes Allergic/Immunologic Denies: hives, throat swelling, tongue swelling, facial swelling or wheezing PFSH PFSH Medical History (Updated 02/13/25 @ 11:29 by Earl Jones NP) Bacteremia Hypoalbuminemia Cirrhosis of liver Lupus Interstitial lung disease Surgical History H/O total knee replacement Hx of bladder repair surgery H/O total hysterectomy History of section Social History Smoking status: unknown if ever smoked What is your current living situation: I presently have a place to live Problems where you live: no known problems Highest level of school completed/degree received: high school Feel stressed/tense/nervous/anxious/difficulty sleeping: to some extent Life stressors: other Life stressor details: 1 Meds Home Medications and Allergies Home Medications Medication Instructions Recorded Confirmed Type atorvastatin 10 mg tablet 10 mg PO DAILY 01/24/2502/02 History carvedilol 6.25 mg tablet 6.25 mg PO DAILY 01/24/25 History folic acid 1 mg tablet 1 mg PO DAILY 01/24/2502/13 History methenamine hippurate 1 gram tablet 1 g PO Q12H 02/13/25 History mirabegron 50 mg tablet,extended 50 mg PO Q24H 5 02/13/25 History release 24 hr montelukast 10 mg tablet 10 mg PO DAILY 01/24/2502/02 History nintedanib 150 mg capsule (Ofev) 150 mg PO Q12H 02/13/25 History pantoprazole 40 mg tablet,delayed 40 mg PO DAILY 01/2402/13/25 History release prednisone 5 mg tablet 5 mg PO DAILY 01/24/2502/13 History Held on 01/28/25. Instructions: Resume on 01/28/25. continue taper to 5mg then resume dose ascorbic acid (vitamin C) 500 mg 500 mg PO DAILY 01/2702/13/25 History tablet (C-500) aspirin 81 mg tablet,delayed 81 mg PO DAILY 01/27/25 0 02/13/25 History release calcium 600 mg (as 1 tab PO BID 01/27/25 History carbonate)-vitamin D3 10 mcg (400 unit) tablet (Calcium 600 + D(3)) ferrous sulfate 325 mg (65 mg 325 mg PO DAILY 01/27/25 02/13/25 History iron) tablet (FeroSul) ipratropium bromide 42 mcg (0.06 2 spray intranasal BI D 01/27/25 02/13/25 History %) nasal spray mycophenolate mofetil 500 mg tablet 1,000 mg PO BID 02/13/25 History pregabalin 150 mg capsule 150 mg PO BID 01/27/2502/13 History prednisone 10 mg tablet 20 mg (2 x 10 mg) PO BID #16 tabs 01/28/25 02/13/25 Rx Allergies Allergy/AdvReac Type Severity Reaction Status Date / Time amoxicillin (From Augmentin) Allergy Verified 02/12/25 21:29 clavulanic acid (From Allergy Verified 02/12/25 21:29 Augmentin) quinine Allergy Verified 02/12/25 21:29 sulfamethoxazole (From Allergy Verified 02/12/25 21:29 Bactrim) trimethoprim (From Bactrim) Allergy Verified 02/12/25 21:29 vonoprazan Allergy Verified 02/12/25 21:29 Exam Constitutional: normal general appearance and no apparent distress Vital Signs - 24 hr 02/12/25 20:34 02/12/25 20:37 02/12/25 20:40 Temperature 98.2 F Pulse Rate 130 H 120 H 112 H Pulse Rate [Left R adial] Respiratory Rate 36 H 32 H 28 H Blood Pressure 147/71 Blood Pressure [Le ft Arm] Pulse Oximetry 83 L 91 L 97 Oxygen Delivery Me thod Non Rebreather Non Rebreather Non Rebreather Oxygen Flow Rate Fraction of Inspir ed Oxygen 02/12/25 20:54 02/12/25 21:30 02/12/25 22:00 Temperature 98.2 F 98.2 F Pulse Rate 110 H 105 H Pulse Rate [Left R adial] Respiratory Rate 28 H 30 H Blood Pressure 148/70 127/63 143/75 Blood Pressure [Le ft Arm] Pulse Oximetry 97 97 Oxygen Delivery Me thod High Flow Nasal Ca nnula High Flow Nasal Ca nnula Oxygen Flow Rate 20 20 Fraction of Inspir ed Oxygen 50 50 02/12/25 22:34 02/12/25 23:00 02/13/25 00:00 Temperature 98.2 F 98.2 F Pulse Rate 98 H 95 H Pulse Rate [Left R adial] Respiratory Rate 33 H 28 H Blood Pressure 113/65 103/58 Blood Pressure [Le ft Arm] Pulse Oximetry 94 L 94 L 95 Oxygen Delivery Me thod High Flow Nasal Ca nnula High Flow Nasal Ca nnula High Flow Nasal Ca nnula Oxygen Flow Rate 20 20 20 Fraction of Inspir ed Oxygen 50 50 50 02/13/25 00:30 02/13/25 00:45 02/13/25 00:53 Temperature 98.2 F 98.2 F 98.9 F Pulse Rate 92 H 92 H Pulse Rate [Left R adial] 86 Respiratory Rate 28 H 28 H 20 Blood Pressure 90/51 90/51 Blood Pressure [Le ft Arm] 93/48 Pulse Oximetry 94 L 94 L 96 Oxygen Delivery Me thod High Flow Nasal Ca nnula High Flow Nasal Ca nnula Oxygen Flow Rate 20 Fraction of Inspir ed Oxygen 50 02/13/25 07:30 02/13/25 08:00 02/13/25 08:44 Temperature 97.8 F Pulse Rate Pulse Rate [Left R adial] 76 Respiratory Rate 20 Blood Pressure Blood Pressure [Le ft Arm] 117/63 Pulse Oximetry 98 94 L Oxygen Delivery Me thod High Flow Nasal Ca nnula Room Air Oxygen Flow Rate Fraction of Inspir ed Oxygen HENMT: normocephalic, head/scalp atraumatic, hearing grossly normal bilaterally, external ears normal, EACs normal, nasal mucous membranes normal, external nose normal, oral mucous membranes normal and oropharynx normal Eyes: PERRL, EOMs intact bilaterally, conjunctivae normal and no scleral icterus Neck/C-Spine: visual inspection normal and trachea midline Lymph: no lymphadenopathy noted Chest: inspection of chest normal and palpation of chest normal Respiratory: breath sounds equal bilaterally, normal respiratory effort, auscultation abnormal (diminished breath sound), wheezing noted (diffuse), no rales, no retractions, no use of accessory muscles and chest percussion normal Cardiovascular: heart rate abnormal (tachycardic), regular rhythm noted, no gallop, no rub, no murmur, no JVD, no clicks, peripheral pulses 2+ throughout, no bruits noted and no additional abnormal heart sounds Gastrointestinal: abdomen normal to inspection, abdomen soft to palpation, nontender to palpation, nontender to percussion, nondistended, normoactive bowel sounds, no hepatosplenomegaly, no masses, no pulsatile mass, no ascites and no hernia Genitourinary: no CVA tenderness Back/Pelvis: spine normal to inspection Extremities: normal to inspection, normal to palpation, no tenderness, full ROM, no joint enlargement and no deformity 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, no movement abnormality noted, no focal motor deficit noted, no sensory deficits noted, gait normal, speech normal, coordination normal, no pronator drift noted, no fasciculations noted and GCS normal Psychiatry: mental status grossly normal, oriented x3, thought process normal, cooperative and affect normal Skin: skin color normal Assessment and Plan Assessment and Plan (1) Interstitial lung disease: Code(s): J84.9 - Interstitial pulmonary disease, unspecified (2) Pneumonia: Code(s): J18.9 - Pneumonia, unspecified organism Plan PNA Admit [id number] Solumedrol 40mg IV q6hrs Levaquin 500mg IV qday Duoneb q4hrs Pulmicort BID CBC BMP in AM Results Labs Labs: CBC 02/12/25 02/13/25 Range/Units 20:30 06:00 WBC 9.4 H 18.1 H D (4.3-9.3) K/uL RBC 4.3 3.6 L (4.00-5.50) M/uL Hgb 12.8 10.8 L (12.5-15.8) gm/dL Hct 39.8 33.2 L (35.9-46.7) % Plt Count 171 111 L (152-353) K/uL Gran % 96.2 H 96.9 H (47.8-71.3) % Lymph % (Auto) 2.2 L 0.4 L (20.0-43.0) % [place] % (Auto) 0.9 L 2.3 L (3.6-9.8) % Eos % (Auto) 0.3 L 0.0 L (0.4-2.8) % Baso % (Auto) 0.4 0.4 (0.1-0.85) Lymph # (Auto) 0.2 L 0.1 L (1.1-3.1) [place] # (Auto) 0.1 L 0.4 L (1.1-3.1) Eos # (Auto) 0.0 0.0 (0.0-0.2) Baso # (Auto) 0.0 0.1 (0.0-0.1) Absolute Gran (auto) 9.1 H 17.5 H (2.3-6.0) CMP 02/12/25 02/13/25 20:30 06:00 Sodium 144 143 Potassium 3.5 L 3.5 L Chloride 104.0 105.0 Carbon Dioxide 38 H 36 H BUN 20 H 16 Creatinine 0.8 0.7 Glucose 101 169 H Calcium 9.3 8.9 Liver Function 02/12/25 Range/Units 20:30 Total Bilirubin 0.74 (0.0-1.0) mg/dL AST 39 H (15-37) U/L ALT 50 (30-65) U/L Alkaline Phosphatase 141 H (50-136) U/L Albumin 2.9 L (3.4-5.0) g/dL ABG ABG results: 02/12/25 22:37 ABG pH 7.53 H ABG pCO2 48 H ABG pO2 653 ABG HCO3 40.1 H ABG Total CO2 41.6 ABG O2 Saturation 91 L ABG Base Excess 15.4 H* Imaging Imaging ordered: Chest x-ray and CT scan - chest Radiologist's impression: Patient: Vandana English MR#: [id number] : 1955 Acct:[id number] Age/Sex: 69 / F ADM Date: 02/12/25 Loc: [place] 1117-[address]: Earl Jones NP Ordering Physician: Janina Noel Date of Service: 02/12/25 Procedure(s): XR chest 1V Accession Number(s): [id number] cc: Earl Jones NP; Janina Noel~ PROCEDURE: Chest X-ray 1 View. HISTORY: Dyspnea. TECHNIQUE: AP view. COMPARISON: 01/27/2025. TECHNICAL QUALITY: Satisfactory. FINDINGS: Normal size heart. Mediastinum and hilar regions show no masses or lymphadenopathy. Normal central vascularity. Patchy pneumonia both lung puente greatest on the left. No acute bony abnormality. IMPRESSION: Bilateral pneumonia greatest on the left. THIS IS AN ELECTRONICALLY VERIFIED FINAL REPORT 02/13/2025 5:54 AM - Electronically signed by Nik Quintero MD Dictated By: Simon Quintero M.D. Signed By: Patient: Vandana English MR#: [id number] : 1955 Acct:[id number] Age/Sex: 69 / F ADM Date: 02/12/25 Loc: ED Attending Dr: Ordering Physician: Janina Noel Date of Service: 02/12/25 Procedure(s): CT angio chest PE protocol Accession Number(s): [id number] cc: Vikas Biggs~ EXAM: CT ANGIO CHEST PE PROTOCOL HISTORY: Shortness of breath, elevated D-dimer Hx of interstitial lung disease COMPARISON: CT of the chest March 18, 2024 and frontal chest radiograph February 12, 2025 TECHNIQUE: CT angiography of the chest with intravenous contrast. Three-dimensional reconstructions and/or MIPS images were produced and reviewed. FINDINGS: The bolus timing is adequate. Sensitivity is reduced significantly due to exces sive patient motion artifact. Within the limits of the study, no pulmonary embolus is visible. The thoracic aorta tapers normally. Limited visualization of the upper abdomen demonstrates no acute process. Lung windows demonstrate severe bilateral interstitial lung disease with severe bilateral superimposed airspace opacities suggesting pneumonia. IMPRESSION: Limited due to excessive patient motion. No pulmonary embolus identified. Severe underlying interstitial lung disease with severe bilateral superimposed pneumonia. All CT scans at this facility use dose modulation, iterative reconstruction, and/or weight based dosing when appropriate to reduce radiation dose to as low as reasonably achievable. THIS IS AN ELECTRONICALLY VERIFIED FINAL REPORT 02/12/2025 11:28 PM - Electronically signed by Sam Ellsworth MD Dictated By: Sam Ellsworth M.D. Signed By:
[2025-02-13] MEDS: PREGABALIN 75 MG CAPSULE PO SCH (11:26)
[2025-02-13] MEDS: BUDESONIDE 0.5 MG/2 ML AMPUL.NEB INH SCH (12:00)
[2025-02-13] MEDS ORDERED: METHYLPREDNISOLONE SOD SUCC/PF 40 MG/ML VIAL ONE (16:37)
[2025-02-13] MEDS: LEVOFLOXACIN/D5W 500 MG/100 ML 500 MG/100 ML PIGGYBACK IV SCH (20:41)
[2025-02-14 05:52] LABS: Basophils%(Percent) Auto 0.1 (0.1-0.85); Granulocytes % - Auto 92.3 % (47.8-71.3); Granulocytes#(Absolute)- Auto 13.6 (2.3-6.0); Hematocrit 34.2 % (35.9-46.7); Mean Corpuscular Volume 92.5 fl (81.0-93.7); Monocytes #(Absolute)- Auto 0.9 (1.1-3.1); Monocytes %(Percent)- Auto 5.8 % (3.6-9.8); Platelet Count 96 K/uL (152-353); White Blood Count 14.7 K/uL (4.3-9.3)
[2025-02-14 06:17] LABS: Potassium 3.4 mmol/L (3.6-5.2)
[2025-02-14] MEDS: METHYLPREDNISOLONE SOD SUCC/PF 125 MG/2 ML VIAL INJ SCH (11:36)
[2025-02-14] MEDS: POTASSIUM CHLORIDE 20 MEQ TAB.ER.PRT PO ONE ×2 (11:37→16:22)
--- NOTE | 2025-02-14 19:03 | Progress Note ---
Progress Note: Subjective Subjective Interval history: A 69-year-old woman who did well overnight weaned off of high flow but sats were into drop again so had to be replaced to help maintain her sats. Patient states she feels better although she still very short of breath in any conversation similar 2-3 words without having difficulty. Will work on weaning high flow again as tolerated by the patient. No fevers and weight is stable as well as about equal I's and O's. Exam Constitutional: abnormal general appearance (disheveled) and (chronically ill), distress noted (moderate) and (respiratory), abnormal body habitus (obese) and limitations noted (physical limitations) Vital Signs - 24 hr 02/13/25 20:00 02/13/25 20:19 02/13/25 20:23 Temperature 98.3 F Pulse Rate [Left R adial] 83 Respiratory Rate 19 Blood Pressure [Le ft Arm] 119/62 Pulse Oximetry 96 98 98 Oxygen Delivery Me thod Room Air High Flow Nasal Ca nnula Oxygen Flow Rate 20 Fraction of Inspir ed Oxygen 50 02/14/25 00:00 02/14/25 00:11 02/14/25 04:08 Temperature 98.6 F Pulse Rate [Left R adial] 76 Respiratory Rate 18 Blood Pressure [Le ft Arm] 124/56 Pulse Oximetry 95 98 98 Oxygen Delivery Me thod High Flow Nasal Ca nnula Oxygen Flow Rate Fraction of Inspir ed Oxygen 02/14/25 05:59 02/14/25 07:55 02/14/25 08:00 Temperature 98.2 F 97.9 F Pulse Rate [Left R adial] 80 78 Respiratory Rate 19 21 Blood Pressure [Le ft Arm] 124/63 141/74 Pulse Oximetry 93 L 97 95 Oxygen Delivery Me thod High Flow Nasal Ca nnula High Flow Nasal Ca nnula Oxygen Flow Rate Fraction of Inspir ed Oxygen 02/14/25 11:08 02/14/25 12:00 02/14/25 15:33 Temperature 98.4 F Pulse Rate [Left R adial] 81 Respiratory Rate 20 Blood Pressure [Le ft Arm] 125/63 Pulse Oximetry 98 94 L 97 Oxygen Delivery Me thod High Flow Nasal Ca nnula Oxygen Flow Rate Fraction of Inspir ed Oxygen 02/14/25 16:00 Temperature 98.4 F Pulse Rate [Left R adial] 83 Respiratory Rate 21 Blood Pressure [Le ft Arm] 133/66 Pulse Oximetry 98 Oxygen Delivery Me thod High Flow Nasal Ca nnula Oxygen Flow Rate Fraction of Inspir ed Oxygen HENMT: normocephalic, head/scalp atraumatic, hearing grossly normal bilaterally, external ears normal, EACs normal, nasal mucous membranes normal, external nose normal, oral mucous membranes normal and oropharynx normal Eyes: PERRL, EOMs intact bilaterally, conjunctivae normal, no scleral icterus, papilledema noted and periorbital findings normal Neck/C-Spine: abnormal to visual inspection, trachea midline, cervical spine nontender, abnormal cervical ROM noted, supple, no meningeal signs and no carotid bruits Lymph: no lymphadenopathy noted and no lymphedema noted Chest: inspection of chest normal and palpation of chest normal Respiratory: breath sounds equal bilaterally, normal respiratory effort, auscultation abnormal (diminished breath sound), wheezing noted (diffuse), no rales, no retractions, no use of accessory muscles and chest percussion normal Cardiovascular: heart rate abnormal (tachycardic), regular rhythm noted, no gallop, no rub, no murmur, no JVD, no clicks, peripheral pulses 2+ throughout, no bruits noted and no additional abnormal heart sounds Gastrointestinal: abdomen normal to inspection, abdomen soft to palpation, nontender to palpation, nontender to percussion, nondistended, normoactive bowel sounds, no hepatosplenomegaly, no masses, no pulsatile mass, no ascites and no hernia Genitourinary: no CVA tenderness and bladder normal to palpation Back/Pelvis: spine abnormal to inspection, no thoracic spine tenderness, no lumbar spine tenderness, thoracic spine ROM abnormal, lumbar spine ROM abnormal and paraspinal muscle tenderness noted Extremities: normal to inspection, normal to palpation, no tenderness, full ROM, no joint enlargement and no deformity Neurology: it communications specialist II-XII intact, no movement abnormality noted, no focal motor deficit noted, sensory deficit noted, gait abnormality noted, speech normal, coordination normal, no pronator drift noted, no fasciculations noted and GCS normal Psychiatry: Mental Status Exam documented within this Exam's Psych section mental status grossly normal, oriented x3, thought process normal, cooperative, affect normal, psychomotor activity normal and memory normal Feel stressed/tense/nervous/anxious/difficulty sleeping: to some extent Life stressors: other Life stressor details: Health issues Skin: skin color normal, no rash, no lesions, ecchymosis noted, no wounds, no lacerations, skin turgor normal, no petechiae, no mottling and nails abnormality noted Progress Note: Objective Labs Labs: CBC 02/14/25 Range/Units 05:50 WBC 14.7 H (4.3-9.3) K/uL RBC 3.7 L (4.00-5.50) M/uL Hgb 11.1 L (12.5-15.8) gm/dL Hct 34.2 L (35.9-46.7) % Plt Count 96 L (152-353) K/uL Gran % 92.3 H (47.8-71.3) % Lymph % (Auto) 1.8 L (20.0-43.0) % [place] % (Auto) 5.8 (3.6-9.8) % Eos % (Auto) 0.0 L (0.4-2.8) % Baso % (Auto) 0.1 (0.1-0.85) Lymph # (Auto) 0.3 L (1.1-3.1) [place] # (Auto) 0.9 L (1.1-3.1) Eos # (Auto) 0.0 (0.0-0.2) Baso # (Auto) 0.0 (0.0-0.1) Absolute Gran (auto) 13.6 H (2.3-6.0) CMP 02/14/25 05:50 Sodium 142 Potassium 3.4 L Chloride 104.0 Carbon Dioxide 37 H BUN 13 Creatinine 0.5 L Glucose 132 H Calcium 8.2 L Progress Note: A&P Assessment and Plan (1) Pneumonia: Qualifiers: Pneumonia type: due to unspecified organism Laterality: left Lung location: lower lobe of lung Qualified Code(s): J18.9 - Pneumonia, unspecified organism (2) Interstitial lung disease: (3) Cirrhosis of liver: Qualifiers: Hepatic cirrhosis type: unspecified hepatic cirrhosis Ascites presence: without ascites Qualified Code(s): K74.60 - Unspecified cirrhosis of liver (4) Lupus: (5) Hypoalbuminemia: (6) Anemia: Qualifiers: Anemia type: iron deficiency Iron deficiency anemia type: other iron deficiency Qualified Code(s): D50.8 - Other iron deficiency anemias (7) Iron deficiency: (8) Thrombocytopenia: (9) Hypokalemia: Plan Admit heplock daily weights high glow oxygen and wean as tolerated by patient and to keep sats greater than 91% cardiac monitoring and continuos pulse ox add vancomycin per pharmacy dosing [id number] Solumedrol 40mg IV q6hrs Levaquin 500mg IV qday Duoneb q4hrs Pulmicort BID CBC, CMP, Mag aznd phos in AM Fall Risk Details Grady Fall Scale Risk Level: Low Fall Risk Current Medications: Current Medications Acetaminophen (Acetaminophen 500 Mg Tablet) 500 mg PO Q6H PRN PRN Reason: MILD PAIN SCALE 1-4 Albuterol Sulfate (Ipratropium/Albuterol Sulfate 3 Ml Ampul.Neb) 3 ml INH Q4H [facility] Last Admin: 02/14/25 15:32 Dose: 3 ml Aspirin (Aspirin 81 Mg Tablet.Dr) 81 mg PO DAILY [facility] Last Admin: 02/14/25 09:18 Dose: 81 mg Atorvastatin Calcium (Atorvastatin Calcium 10 Mg Tablet) 10 mg PO BEDTIME [facility] Budesonide (Budesonide 0.5 Mg/2 Ml Ampul.Neb) 1 mg INH RBID [facility] Last Admin: 02/14/25 07:55 Dose: 1 mg Carvedilol (Carvedilol 6.25 Mg Tablet) 6.25 mg PO BEDTIME [facility] Docusate Sodium (Docusate Sodium 100 Mg Capsule) 100 mg PO DAILY PRN PRN Reason: Constipation Levofloxacin/Dextrose (Levofloxacin/D5w 500 Mg/100 Ml) 500 mg in 100 mls @ 50 mls/hr IV Q24H [facility] Last Admin: 02/13/25 20:41 Dose: 50 mls/hr Magnesium Hydroxide (Magnesium, Aluminum Hydroxide 30 Ml Oral.Susp) 30 ml PO DAILY PRN PRN Reason: gerd Methylprednisolone Sodium Succinate (Methylprednisolone Sod Succ/Pf 125 Mg/2 Ml Vial) 40 mg INJ Q6H [facility] Last Admin: 02/14/25 18:29 Dose: 40 mg Non-Formulary Medication (Mycophenolate Mofetil) 1,000 mg PO BID [facility] On Hold: 02/13/25 10:22 Last Admin: 02/13/25 10:08 Dose: Not Given Non-Formulary Medication (Methenamine Hippurate) 1 gm PO BID [facility] Last Admin: 02/14/25 09:22 Dose: 1 gm Non-Formulary Medication (Nintedanib [Ofev]) 150 mg PO BID [facility] On Hold: 02/13/25 10:22 Last Admin: 02/13/25 10:08 Dose: Not Given Non-Formulary Medication (Mirabegron) 50 mg PO BEDTIME [facility] Pregabalin (Pregabalin 75 Mg Capsule) 150 mg PO BID [facility] Last Admin: 02/14/25 09:18 Dose: 150 mg Time Spent With Patient Time: Total time spent is greater than 50% in coordination of care (as documented) at patient's floor/unit and/or counseling patient:
[2025-02-14] MEDS: carvediloL 6.25 MG TABLET PO SCH (20:08)
[2025-02-14] MEDS: ATORVASTATIN CALCIUM 10 MG TABLET PO SCH (20:08)
[2025-02-15] MEDS ORDERED: METHYLPREDNISOLONE SOD SUCC/PF 40 MG/ML VIAL ONE ×2 (00:53→05:45)
[2025-02-15 05:49] LABS: Basophils%(Percent) Auto 0.1 (0.1-0.85); Granulocytes % - Auto 95.8 % (47.8-71.3); Granulocytes#(Absolute)- Auto 10.2 (2.3-6.0); Hematocrit 34.5 % (35.9-46.7); Monocytes #(Absolute)- Auto 0.3 (1.1-3.1); Monocytes %(Percent)- Auto 2.7 % (3.6-9.8); Platelet Count 87 K/uL (152-353); White Blood Count 10.6 K/uL (4.3-9.3)
[2025-02-15 06:51] LABS: Potassium 4.8 mmol/L (3.6-5.2)
[2025-02-15] MEDS: PANTOPRAZOLE SODIUM 40 MG TABLET.DR PO SCH (10:01)
[2025-02-15 12:17] LABS: PCO2 ABG 49 mmHg (35-45); PO2 ABG 88 mmHg (60-100); pH ABG 7.45 (7.35-7.45)
[2025-02-15 12:18] LABS: Base Excess ABG 8.7 mmo1/L (-2-2); Oxygen Saturation ABG 97 % (92-100)
--- NOTE | 2025-02-15 13:40 | Progress Note ---
Progress Note: Subjective Subjective Interval history: A 69-year-old woman who did well overnight Continue to wear high flow today to keep sats greater than 70 as when she removes to go to the bathroom this follow- up does. Patient states she stills feeling better although she is requiring to speak slowly short sentences secondary to maintain breathing without going into respiratory distress. Patient aaron afebrile. The family in the room and agrees to the E consult today Exam Constitutional: abnormal general appearance (disheveled) and (chronically ill), distress noted (moderate) and (respiratory), abnormal body habitus (o bese), limitations noted (physical limitations) and alert Vital Signs - 24 hr 02/14/25 15:33 02/14/25 16:00 02/14/25 19:50 Temperature 98.4 F 98.7 F Pulse Rate [Left R adial] 83 74 Respiratory Rate 21 23 Blood Pressure [Le ft Arm] 133/66 139/70 Pulse Oximetry 97 98 97 Oxygen Delivery Me thod High Flow Nasal Ca nnula High Flow Nasal Ca nnula Oxygen Flow Rate Fraction of Inspir ed Oxygen 02/14/25 20:18 02/14/25 23:28 02/15/25 00:08 Temperature 98.5 F Pulse Rate [Left R adial] 77 Respiratory Rate 22 Blood Pressure [Le ft Arm] 136/72 Pulse Oximetry 95 94 L 97 Oxygen Delivery Me thod High Flow Nasal Ca nnula High Flow Nasal Ca nnula Oxygen Flow Rate 20 Fraction of Inspir ed Oxygen 50 02/15/25 03:06 02/15/25 03:34 02/15/25 07:54 Temperature 98.3 F Pulse Rate [Left R adial] 70 Respiratory Rate 19 Blood Pressure [Le ft Arm] 152/61 Pulse Oximetry 96 97 97 Oxygen Delivery Me thod High Flow Nasal Ca nnula Oxygen Flow Rate Fraction of Inspir ed Oxygen 02/15/25 08:00 02/15/25 11:35 02/15/25 12:00 Temperature 97.5 F L 98.5 F Pulse Rate [Left R adial] 67 81 Respiratory Rate 22 18 Blood Pressure [Le ft Arm] 150/76 130/65 Pulse Oximetry 96 97 97 Oxygen Delivery Me thod High Flow Nasal Ca nnula High Flow Nasal Ca nnula Oxygen Flow Rate Fraction of Inspir ed Oxygen HENMT: normocephalic, head/scalp atraumatic, hearing grossly normal bilaterally, external ears normal, EACs normal, nasal mucous membranes normal, external nose normal, oral mucous membranes normal and oropharynx normal Eyes: PERRL, EOMs intact bilaterally, conjunctivae normal, no scleral icterus, papilledema noted and periorbital findings normal Neck/C-Spine: abnormal to visual inspection, trachea midline, cervical spine nontender, abnormal cervical ROM noted, supple, no meningeal signs and no carotid bruits Lymph: no lymphadenopathy noted and no lymphedema noted Chest: inspection of chest normal and palpation of chest normal Respiratory: breath sounds unequal, abnormal respiratory effort, auscultation abnormal (diminished breath sound), wheezing noted (diffuse), no rales, no retractions, no use of accessory muscles and chest percussion normal Cardiovascular: normal heart rate noted, regular rhythm noted, no gallop, no rub, no murmur, no JVD, no clicks, peripheral pulses 2+ throughout, no bruits noted and no additional abnormal heart sounds Gastrointestinal: abdomen normal to inspection, abdomen soft to palpation, nontender to palpation, nontender to percussion, nondistended, normoactive bowel sounds, no hepatosplenomegaly, no masses, no pulsatile mass, no ascites and no hernia Genitourinary: no CVA tenderness and bladder normal to palpation Back/Pelvis: spine abnormal to inspection, no thoracic spine tenderness, no lumbar spine tenderness, thoracic spine ROM abnormal, lumbar spine ROM abnormal and paraspinal muscle tenderness noted Extremities: normal to inspection, normal to palpation, no tenderness, full ROM, no joint enlargement and no deformity Neurology: rn acute dialysis II-XII intact, no movement abnormality noted, no focal motor deficit noted, sensory deficit noted, gait abnormality noted, speech normal, coordination normal, no pronator drift noted, no fasciculations noted and GCS normal Psychiatry: Mental Status Exam documented within this Exam's Psych section mental status grossly normal, oriented x3, thought process normal, cooperative, affect normal, psychomotor activity normal and memory normal Feel stressed/tense/nervous/anxious/difficulty sleeping: to some extent Life stressors: other Life stressor details: Health issues Skin: skin color normal, no rash, no lesions, ecchymosis noted, no wounds, no lacerations, skin turgor normal, no petechiae, no mottling and nails abnormality noted Progress Note: Objective Labs Labs: CBC 02/15/25 Range/Units 05:45 WBC 10.6 H (4.3-9.3) K/uL RBC 3.8 L (4.00-5.50) M/uL Hgb 11.3 L (12.5-15.8) gm/dL Hct 34.5 L (35.9-46.7) % Plt Count 87 L (152-353) K/uL Gran % 95.8 H (47.8-71.3) % Lymph % (Auto) 1.4 L (20.0-43.0) % [place] % (Auto) 2.7 L (3.6-9.8) % Eos % (Auto) 0.0 L (0.4-2.8) % Baso % (Auto) 0.1 (0.1-0.85) Lymph # (Auto) 0.1 L (1.1-3.1) [place] # (Auto) 0.3 L (1.1-3.1) Eos # (Auto) 0.0 (0.0-0.2) Baso # (Auto) 0.0 (0.0-0.1) Absolute Gran (auto) 10.2 H (2.3-6.0) CMP 02/15/25 05:45 Sodium 140 Potassium 4.8 Chloride 107.0 Carbon Dioxide 31 BUN 14 Creatinine 0.6 Glucose 175 H Calcium 8.2 L Pulse Oximetry Attestation: I have reviewed the pertinent pulse oximetry results. Progress Note: A&P Assessment and Plan (1) Pneumonia: Qualifiers: Pneumonia type: due to unspecified organism Laterality: left Lung location: lower lobe of lung Qualified Code(s): J18.9 - Pneumonia, unspecified organism (2) Interstitial lung disease: (3) Cirrhosis of liver: Qualifiers: Hepatic cirrhosis type: unspecified hepatic cirrhosis Ascites presence: without ascites Qualified Code(s): K74.60 - Unspecified cirrhosis of liver (4) Lupus: (5) Hypoalbuminemia: (6) Anemia: Qualifiers: Anemia type: iron deficiency Iron deficiency anemia type: other iron deficiency Qualified Code(s): D50.8 - Other iron deficiency anemias (7) Iron deficiency: (8) Thrombocytopenia: (9) Hypokalemia: Plan Admit heplock daily weights high glow oxygen and wean as tolerated by patient and to keep sats greater than 91% cardiac monitoring and continuos pulse ox add vancomycin per pharmacy dosing [id number] Solumedrol 40mg IV q6hrs Levaquin 500mg IV qday Duoneb q4hrs Pulmicort BID potassium 40 meq x 1 [facility] consult today CBC, CMP, Mag and phos in AM Fall Risk Details Grady Fall Scale Risk Level: Low Fall Risk Current Medications: Current Medications Acetaminophen (Acetaminophen 500 Mg Tablet) 500 mg PO Q6H PRN PRN Reason: MILD PAIN SCALE 1-4 Albuterol Sulfate (Ipratropium/Albuterol Sulfate 3 Ml Ampul.Neb) 3 ml INH Q4H [facility] Last Admin: 02/15/25 11:35 Dose: 3 ml Aspirin (Aspirin 81 Mg Tablet.Dr) 81 mg PO DAILY [facility] Last Admin: 02/15/25 09:09 Dose: 81 mg Atorvastatin Calcium (Atorvastatin Calcium 10 Mg Tablet) 10 mg PO BEDTIME [facility] Last Admin: 02/14/25 20:08 Dose: 10 mg Budesonide (Budesonide 0.5 Mg/2 Ml Ampul.Neb) 1 mg INH RBID [facility] Last Admin: 02/15/25 07:53 Dose: 1 mg Carvedilol (Carvedilol 6.25 Mg Tablet) 6.25 mg PO BEDTIME [facility] Last Admin: 02/14/25 20:08 Dose: 6.25 mg Docusate Sodium (Docusate Sodium 100 Mg Capsule) 100 mg PO DAILY PRN PRN Reason: Constipation Levofloxacin/Dextrose (Levofloxacin/D5w 500 Mg/100 Ml) 500 mg in 100 mls @ 50 mls/hr IV Q24H [facility] Last Admin: 02/14/25 20:08 Dose: 50 mls/hr Magnesium Hydroxide (Magnesium, Aluminum Hydroxide 30 Ml Oral.Susp) 30 ml PO DAILY PRN PRN Reason: gerd Methylprednisolone Sodium Succinate (Methylprednisolone Sod Succ/Pf 125 Mg/2 Ml Vial) 40 mg INJ Q6H [facility] Last Admin: 02/15/25 11:50 Dose: 40 mg Non-Formulary Medication (Mycophenolate Mofetil) 1,000 mg PO BID [facility] On Hold: 02/13/25 10:22 Last Admin: 02/13/25 10:08 Dose: Not Given Non-Formulary Medication (Methenamine Hippurate) 1 gm PO BID [facility] Last Admin: 02/15/25 09:09 Dose: 1 gm Non-Formulary Medication (Nintedanib [Ofev]) 150 mg PO BID [facility] On Hold: 02/13/25 10:22 Last Admin: 02/13/25 10:08 Dose: Not Given Non-Formulary Medication (Mirabegron) 50 mg PO BEDTIME [facility] Last Admin: 02/14/25 22:46 Dose: 50 mg Pantoprazole Sodium (Pantoprazole Sodium 40 Mg Tablet.Dr) 40 mg PO BID [facility] Last Admin: 02/15/25 10:01 Dose: 40 mg Pregabalin (Pregabalin 75 Mg Capsule) 150 mg PO BID [facility] Last Admin: 02/15/25 09:09 Dose: 150 mg Time Spent With Patient Time: Total time spent is greater than 50% in coordination of care (as documented) at patient's floor/unit and/or counseling patient:
[2025-02-15] MEDS: VANCOMYCIN HCL 1,000 MG in 0.9 % SODIUM CHLORIDE 250 ML IV SCH (17:08)
[2025-02-16 10:21] LABS: Basophils%(Percent) Auto 0.1 (0.1-0.85); Granulocytes % - Auto 96.3 % (47.8-71.3); Granulocytes#(Absolute)- Auto 9.9 (2.3-6.0); Hematocrit 37.5 % (35.9-46.7); Mean Corpuscular Volume 92.5 fl (81.0-93.7); Monocytes #(Absolute)- Auto 0.3 (1.1-3.1); Monocytes %(Percent)- Auto 2.7 % (3.6-9.8); Platelet Count 118 K/uL (152-353); White Blood Count 10.3 K/uL (4.3-9.3)
[2025-02-16] MEDS: POTASSIUM PHOSPHATE 500 MG TABLET.SOL PO ONE ×3 (12:19→20:11)
--- NOTE | 2025-02-16 14:48 | Progress Note ---
Progress Note: Subjective Subjective Interval history: A 69-year-old woman who did well overnight and on 4 liters NC as at home and this am after going to potty chair sats dropped to 60's and patient not recovered after 10 minutes so High flow resumed for patient saturations and comfort. Patient states she is more short of breath so having to speak slowly and short sentences. Patient aaron afebrile. The family in the room and agrees to the E consult today. Ashley had no further recommendations and followed up today and still agree to stay the course and will follow up again tomorrow Exam Constitutional: abnormal general appearance (disheveled) and (chronically ill), distress noted (moderate) and (respiratory), abnormal body habitus (obese), limitations noted (physical limitations) and alert Vital Signs - 24 hr 02/15/25 15:38 02/15/25 16:00 02/15/25 20:00 Temperature 98.5 F 98.4 F Pulse Rate [Left R adial] 79 82 Respiratory Rate 20 23 Blood Pressure [Le ft Arm] 143/69 137/68 Pulse Oximetry 96 93 L 96 Oxygen Delivery Me thod High Flow Nasal Ca nnula High Flow Nasal Ca nnula Oxygen Flow Rate Fraction of Inspir ed Oxygen 02/15/25 20:32 02/15/25 20:32 02/15/25 23:48 Temperature 98.3 F Pulse Rate [Left R adial] 75 Respiratory Rate 20 Blood Pressure [Le ft Arm] 128/69 Pulse Oximetry 91 L 91 L 95 Oxygen Delivery Me thod High Flow Nasal Ca nnula High Flow Nasal Ca nnula Oxygen Flow Rate 20 Fraction of Inspir ed Oxygen 36 02/16/25 03:47 02/16/25 07:20 02/16/25 08:00 Temperature 97.9 F 98.1 F Pulse Rate [Left R adial] 73 87 Respiratory Rate 21 19 Blood Pressure [Le ft Arm] 134/72 155/84 Pulse Oximetry 93 L 93 L 92 L Oxygen Delivery Me thod High Flow Nasal Ca nnula Nasal [place] Oxygen Flow Rate 4 Fraction of Inspir ed Oxygen 02/16/25 11:12 02/16/25 11:50 Temperature 98.8 F Pulse Rate [Left R adial] 82 Respiratory Rate 21 Blood Pressure [Le ft Arm] 140/73 Pulse Oximetry 90 L 92 L Oxygen Delivery Me thod High Flow Nasal Ca nnula Oxygen Flow Rate Fraction of Inspir ed Oxygen HENMT: normocephalic, head/scalp atraumatic, hearing grossly normal bilaterally, external ears normal, EACs normal, nasal mucous membranes normal, external nose normal, oral mucous membranes normal and oropharynx normal Eyes: PERRL, EOMs intact bilaterally, conjunctivae normal, no scleral icterus, papilledema noted and periorbital findings normal Neck/C-Spine: abnormal to visual inspection, trachea midline, cervical spine nontender, abnormal cervical ROM noted, supple, no meningeal signs and no carotid bruits Lymph: no lymphadenopathy noted and no lymphedema noted Chest: inspection of chest normal and palpation of chest normal Respiratory: breath sounds unequal, abnormal respiratory effort, auscultation abnormal (diminished breath sound), wheezing noted (diffuse), no rales, no retractions, no use of accessory muscles and chest percussion normal Cardiovascular: normal heart rate noted, regular rhythm noted, no gallop, no rub, no murmur, no JVD, no clicks, peripheral pulses 2+ throughout, no bruits noted and no additional abnormal heart sounds Gastrointestinal: abdomen normal to inspection, abdomen soft to palpation, nontender to palpation, nontender to percussion, nondistended, normoactive bowel sounds, no hepatosplenomegaly, no masses, no pulsatile mass, no ascites and no hernia Genitourinary: no CVA tenderness and bladder normal to palpation Back/Pelvis: spine abnormal to inspection, no thoracic spine tenderness, no lumbar spine tenderness, thoracic spine ROM abnormal, lumbar spine ROM abnormal and paraspinal muscle tenderness noted Extremities: normal to inspection, normal to palpation, no tenderness, full ROM, no joint enlargement and no deformity 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, no movement abnormality noted, no focal motor deficit noted, sensory deficit noted, gait abnormality noted, speech normal, coordination normal, no pronator drift noted, no fasciculations noted and GCS normal Psychiatry: Mental Status Exam documented within this Exam's Psych section mental status grossly normal, oriented x3, thought process normal, cooperative, affect normal, psychomotor activity normal and memory normal Feel stressed/tense/nervous/anxious/difficulty sleeping: to some extent Life stressors: other Life stressor details: Health issues Skin: skin color normal, no rash, no lesions, ecchymosis noted, no wounds, no lacerations, skin turgor normal, no petechiae, no mottling and nails abnormality noted Progress Note: Objective Labs Labs: CBC 02/16/25 Range/Units 10:16 WBC 10.3 H (4.3-9.3) K/uL RBC 4.1 (4.00-5.50) M/uL Hgb 12.1 L (12.5-15.8) gm/dL Hct 37.5 (35.9-46.7) % Plt Count 118 L (152-353) K/uL Gran % 96.3 H (47.8-71.3) % Lymph % (Auto) 0.9 L (20.0-43.0) % [place] % (Auto) 2.7 L (3.6-9.8) % Eos % (Auto) 0.0 L (0.4-2.8) % Baso % (Auto) 0.1 (0.1-0.85) Lymph # (Auto) 0.1 L (1.1-3.1) [place] # (Auto) 0.3 L (1.1-3.1) Eos # (Auto) 0.0 (0.0-0.2) Baso # (Auto) 0.0 (0.0-0.1) Absolute Gran (auto) 9.9 H (2.3-6.0) CMP 02/16/25 10:16 Sodium 139 Potassium 4.0 Chloride 105.0 Carbon Dioxide 31 BUN 14 Creatinine 0.7 Glucose 214 H Calcium 8.2 L Liver Function 02/16/25 Range/Units 10:16 Total Bilirubin 0.62 (0.0-1.0) mg/dL AST 19 (15-37) U/L ALT 43 (30-65) U/L Alkaline Phosphatase 80 (50-136) U/L Albumin 2.6 L (3.4-5.0) g/dL Progress Note: A&P Assessment and Plan (1) Pneumonia: Qualifiers: Pneumonia type: due to unspecified organism Laterality: left Lung location: lower lobe of lung Qualified Code(s): J18.9 - Pneumonia, unspecified organism (2) Interstitial lung disease: (3) Cirrhosis of liver: Qualifiers: Hepatic cirrhosis type: unspecified hepatic cirrhosis Ascites presence: without ascites Qualified Code(s): K74.60 - Unspecified cirrhosis of liver (4) Lupus: (5) Hypoalbuminemia: (6) Anemia: Qualifiers: Anemia type: iron deficiency Iron deficiency anemia type: other iron deficiency Qualified Code(s): D50.8 - Other iron deficiency anemias (7) Iron deficiency: (8) Thrombocytopenia: (9) Hypokalemia: Plan heplock daily weights high glow oxygen and wean as tolerated by patient and to keep sats greater than 91% cardiac monitoring and continuos pulse ox vancomycin per pharmacy dosing [id number] Solumedrol 40mg IV q6hrs Levaquin 500mg IV qday Duoneb q4hrs Pulmicort BID check on CT in the am to assure we got the parameters the specialist from [place] wanted for the patient to have. [facility] consult today CBC, CMP, Mag and phos in AM Fall Risk Details Grady Fall Scale Risk Level: Low Fall Risk Current Medications: Current Medications Acetaminophen (Acetaminophen 500 Mg Tablet) 500 mg PO Q6H PRN PRN Reason: MILD PAIN SCALE 1-4 Albuterol Sulfate (Ipratropium/Albuterol Sulfate 3 Ml Ampul.Neb) 3 ml INH Q4H [facility] Last Admin: 02/16/25 11:12 Dose: 3 ml Aspirin (Aspirin 81 Mg Tablet.) 81 mg PO DAILY [facility] Last Admin: 02/16/25 08:28 Dose: 81 mg Atorvastatin Calcium (Atorvastatin Calcium 10 Mg Tablet) 10 mg PO BEDTIME [facility] Last Admin: 02/15/25 20:25 Dose: 10 mg Budesonide (Budesonide 0.5 Mg/2 Ml Ampul.Neb) 1 mg INH RBID [facility] Last Admin: 02/16/25 07:20 Dose: 1 mg Carvedilol (Carvedilol 6.25 Mg Tablet) 6.25 mg PO BEDTIME [facility] Last Admin: 02/15/25 20:24 Dose: 6.25 mg Docusate Sodium (Docusate Sodium 100 Mg Capsule) 100 mg PO DAILY PRN PRN Reason: Constipation Levofloxacin/Dextrose (Levofloxacin/D5w 500 Mg/100 Ml) 500 mg in 100 mls @ 50 mls/hr IV Q24H [facility] Last Admin: 02/15/25 20:25 Dose: 50 mls/hr Vancomycin HCl 1,000 mg/ (Sodium Chloride) 250 mls @ 250 mls/hr IV Q12H [facility] Last Infusion: 02/16/25 05:26 Dose: Infused Magnesium Hydroxide (Magnesium, Aluminum Hydroxide 30 Ml Oral.Susp) 30 ml PO DAILY PRN PRN Reason: gerd Methylprednisolone Sodium Succinate (Methylprednisolone Sod Succ/Pf 125 Mg/2 Ml Vial) 40 mg INJ Q6H [facility] Last Admin: 02/16/25 11:27 Dose: 40 mg Non-Formulary Medication (Mycophenolate Mofetil) 1,000 mg PO BID [facility] On Hold: 02/13/25 10:22 Last Admin: 02/13/25 10:08 Dose: Not Given Non-Formulary Medication (Methenamine Hippurate) 1 gm PO BID [facility] Last Admin: 02/16/25 08:28 Dose: 1 gm Non-Formulary Medication (Nintedanib [Ofev]) 150 mg PO BID [facility] On Hold: 02/13/25 10:22 Last Admin: 02/13/25 10:08 Dose: Not Given Non-Formulary Medication (Mirabegron) 50 mg PO BEDTIME [facility] Last Admin: 02/15/25 20:26 Dose: 50 mg Pantoprazole Sodium (Pantoprazole Sodium 40 Mg Tablet.Dr) 40 mg PO BID [facility] Last Admin: 02/16/25 08:28 Dose: 40 mg Potassium Phosphate (Potassium Phosphate 500 Mg Tablet.Madai) 500 mg PO ONCE ONE Stop: 02/16/25 21:01 Pregabalin (Pregabalin 75 Mg Capsule) 150 mg PO BID [facility] Last Admin: 02/16/25 08:28 Dose: 150 mg Time Spent With Patient Time: Total time spent is greater than 50% in coordination of care (as documented) at patient's floor/unit and/or counseling patient:
[2025-02-17] MEDS ORDERED: ALBUMIN HUMAN 25% 100 ML IV SCH (08:30)
[2025-02-17 09:34] LABS: Granulocytes#(Absolute)- Auto 8.4 (2.3-6.0); Hematocrit 38.4 % (35.9-46.7); Mean Corpuscular Volume 91.9 fl (81.0-93.7); Monocytes #(Absolute)- Auto 0.3 (1.1-3.1); Monocytes %(Percent)- Auto 3.6 % (3.6-9.8); Platelet Count 114 K/uL (152-353); White Blood Count 8.9 K/uL (4.3-9.3)
[2025-02-17 09:37] LABS: Potassium 3.8 mmol/L (3.6-5.2)
[2025-02-17] MEDS: SODIUM CHLORIDE 0.9% IV ONE (11:22)
[2025-02-17] MEDS: POTASSIUM PHOS M BASIC D BASIC IV ONE (11:22)
--- NOTE | 2025-02-17 13:37 | Progress Note ---
Progress Note: Subjective Subjective Interval history: A 69-year-old woman who did well overnight and on Hihg flow til this am and this am 4 liters NC as at home restarted patient states she feels better other than issues with breathign with movement and she understands the High flow helps her feel better and her brother just started on high flow at home. Patient remains afebrile and eatng well. Ashley had no further recommendations and followed up today and will discuss patient with [facility] team available there for further directions and opinions Exam Constitutional: abnormal general appearance (disheveled) and (chronically ill), distress noted (moderate) and (respiratory), abnormal body habitus (obese), limitations noted (physical limitations) and alert Vital Signs - 24 hr 02/16/25 15:12 02/16/25 16:00 02/16/25 20:00 Temperature 98.5 F 98.8 F Pulse Rate [Left R adial] 83 80 Respiratory Rate 20 24 Blood Pressure [Le ft Arm] 133/65 188/71 Pulse Oximetry 92 L 93 L 92 L Oxygen Delivery Me thod High Flow Nasal Ca nnula High Flow Nasal Ca nnula Oxygen Flow Rate Fraction of Inspir ed Oxygen 02/16/25 20:35 02/16/25 20:35 02/16/25 23:52 Temperature 98.2 F Pulse Rate [Left R adial] 83 Respiratory Rate 22 Blood Pressure [Le ft Arm] 142/59 Pulse Oximetry 91 L 91 L 91 L Oxygen Delivery Me thod High Flow Nasal Ca nnula High Flow Nasal Ca nnula Oxygen Flow Rate 20 Fraction of Inspir ed Oxygen 28 02/17/25 03:46 02/17/25 08:00 02/17/25 08:57 Temperature 98.5 F 98.2 F Pulse Rate [Left R adial] 73 75 Respiratory Rate 21 20 Blood Pressure [Le ft Arm] 142/77 155/80 Pulse Oximetry 93 L 96 94 L Oxygen Delivery Me thod High Flow Nasal Ca nnula High Flow Nasal Ca nnula Oxygen Flow Rate Fraction of Inspir ed Oxygen 02/17/25 11:58 02/17/25 13:03 Temperature 98.2 F Pulse Rate [Left R adial] 83 Respiratory Rate 20 Blood Pressure [Le ft Arm] 177/86 Pulse Oximetry 90 L 97 Oxygen Delivery Me thod Nasal Cannula Oxygen Flow Rate 4 Fraction of Inspir ed Oxygen HENMT: normocephalic, head/scalp atraumatic, hearing grossly normal bilaterally, external ears normal, EACs normal, nasal mucous membranes normal, external nose normal, oral mucous membranes normal and oropharynx normal Eyes: PERRL, EOMs intact bilaterally, conjunctivae normal, no scleral icterus, papilledema noted and periorbital findings normal Neck/C-Spine: abnormal to visual inspection, trachea midline, cervical spine nontender, abnormal cervical ROM noted, supple, no meningeal signs and no carotid bruits Lymph: no lymphadenopathy noted and no lymphedema noted Chest: inspection of chest normal and palpation of chest normal Respiratory: breath sounds unequal, abnormal respiratory effort, auscultation abnormal (diminished breath sound), wheezing noted (diffuse), no rales, no retractions, no use of accessory muscles and chest percussion normal Cardiovascular: normal heart rate noted, regular rhythm noted, no gallop, no rub, no murmur, no JVD, no clicks, peripheral pulses 2+ throughout, no bruits noted and no additional abnormal heart sounds Gastrointestinal: abdomen normal to inspection, abdomen soft to palpation, nontender to palpation, nontender to percussion, nondistended, normoactive bowel sounds, no hepatosplenomegaly, no masses, no pulsatile mass, no ascites and no hernia Genitourinary: no CVA tenderness and bladder normal to palpation Back/Pelvis: spine abnormal to inspection, no thoracic spine tenderness, no lumbar spine tenderness, thoracic spine ROM abnormal, lumbar spine ROM abnormal and paraspinal muscle tenderness noted Extremities: normal to inspection, normal to palpation, no tenderness, full ROM, no joint enlargement and no deformity 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, no movement abnormality noted, no focal motor deficit noted, sensory deficit noted, gait abnormality noted, speech normal, coordination normal, no pronator drift noted, no fasciculations noted and GCS normal Psychiatry: Mental Status Exam documented within this Exam's Psych section mental status grossly normal, oriented x3, thought process normal, cooperative, affect normal, psychomotor activity normal and memory normal Feel stressed/tense/nervous/anxious/difficulty sleeping: to some extent Life stressors: other Life stressor details: Health issues Skin: skin color normal, no rash, no lesions, ecchymosis noted, no wounds, no lacerations, skin turgor normal, no petechiae, no mottling and nails abnormality noted Progress Note: Objective Labs Labs: CBC 02/17/25 Range/Units 09:20 WBC 8.9 (4.3-9.3) K/uL RBC 4.2 (4.00-5.50) M/uL Hgb 12.3 L (12.5-15.8) gm/dL Hct 38.4 (35.9-46.7) % Plt Count 114 L (152-353) K/uL Gran % 95.0 H (47.8-71.3) % Lymph % (Auto) 1.4 L (20.0-43.0) % [place] % (Auto) 3.6 (3.6-9.8) % Eos % (Auto) 0.0 L (0.4-2.8) % Baso % (Auto) 0.0 L (0.1-0.85) Lymph # (Auto) 0.1 L (1.1-3.1) [place] # (Auto) 0.3 L (1.1-3.1) Eos # (Auto) 0.0 (0.0-0.2) Baso # (Auto) 0.0 (0.0-0.1) Absolute Gran (auto) 8.4 H (2.3-6.0) CMP 02/17/25 09:20 Sodium 141 Potassium 3.8 Chloride 106.0 Carbon Dioxide 32 BUN 14 Creatinine 0.6 Glucose 156 H Calcium 8.0 L Liver Function 02/17/25 Range/Units 09:20 Total Bilirubin 0.72 (0.0-1.0) mg/dL AST 18 (15-37) U/L ALT 42 (30-65) U/L Alkaline Phosphatase 82 (50-136) U/L Albumin 2.6 L (3.4-5.0) g/dL Imaging CT scan - chest: Attestation: I have reviewed the pertinent imaging results. Radiologist's impression: high resolution as requested by the [place] [facility] and results will be sent to them and used for patient care here as well. Progress Note: A&P Assessment and Plan (1) Pneumonia: Qualifiers: Laterality: left Lung location: lower lobe of lung Pneumonia type: due to unspecified organism Qualified Code(s): J18.9 - Pneumonia, unspecified organism (2) Interstitial lung disease: (3) Cirrhosis of liver: Qualifiers: Ascites presence: without ascites Hepatic cirrhosis type: unspecified hepatic cirrhosis Qualified Code(s): K74.60 - Unspecified cirrhosis of liver (4) Lupus: (5) Hypoalbuminemia: (6) Anemia: Qualifiers: Anemia type: iron deficiency Iron deficiency anemia type: other iron deficiency Qualified Code(s): D50.8 - Other iron deficiency anemias (7) Iron deficiency: (8) Thrombocytopenia: (9) Hypokalemia: Plan heplock daily weights high glow oxygen and wean as tolerated by patient and to keep sats greater than 91% cardiac monitoring and continuos pulse ox vancomycin per pharmacy dosing [id number] Solumedrol 40mg IV q6hrs Levaquin 500mg IV qday Duoneb q4hrs Pulmicort BID CT of lungs high resolution looking at interstitial lung disease better at this time.. [facility] consult today CBC, CMP, Mag and phos in AM Fall Risk Details Grady Fall Scale Risk Level: Moderate Fall Risk Current Medications: Current Medications Acetaminophen (Acetaminophen 500 Mg Tablet) 500 mg PO Q6H PRN PRN Reason: MILD PAIN SCALE 1-4 Albuterol Sulfate (Ipratropium/Albuterol Sulfate 3 Ml Ampul.Neb) 3 ml INH Q4H [facility] Last Admin: 02/17/25 12:44 Dose: 3 ml Aspirin (Aspirin 81 Mg Tablet.Dr) 81 mg PO DAILY [facility] Last Admin: 02/17/25 09:17 Dose: 81 mg Atorvastatin Calcium (Atorvastatin Calcium 10 Mg Tablet) 10 mg PO BEDTIME [facility] Last Admin: 02/16/25 20:11 Dose: 10 mg Budesonide (Budesonide 0.5 Mg/2 Ml Ampul.Neb) 1 mg INH RBID [facility] Last Admin: 02/17/25 08:56 Dose: 1 mg Carvedilol (Carvedilol 6.25 Mg Tablet) 6.25 mg PO BEDTIME [facility] Last Admin: 02/16/25 20:12 Dose: 6.25 mg Docusate Sodium (Docusate Sodium 100 Mg Capsule) 100 mg PO DAILY PRN PRN Reason: Constipation Levofloxacin/Dextrose (Levofloxacin/D5w 500 Mg/100 Ml) 500 mg in 100 mls @ 50 m ls/hr IV Q24H [facility] Last Admin: 02/16/25 20:12 Dose: 50 mls/hr Vancomycin HCl 1,000 mg/ (Sodium Chloride) 250 mls @ 250 mls/hr IV Q12H [facility] Last Infusion: 02/17/25 06:37 Dose: Infused Potassium Phosphate 22.5 mmol/ (Sodium Chloride) 257.5 mls @ 42 mls/hr IV ONCE ONE Stop: 02/17/25 17:07 Last Admin: 02/17/25 11:22 Dose: 42 mls/hr Magnesium Hydroxide (Magnesium, Aluminum Hydroxide 30 Ml Oral.Susp) 30 ml PO DAILY PRN PRN Reason: gerd Methylprednisolone Sodium Succinate (Methylprednisolone Sod Succ/Pf 125 Mg/2 Ml Vial) 40 mg INJ Q6H [facility] Last Admin: 02/17/25 11:22 Dose: 40 mg Non-Formulary Medication (Mycophenolate Mofetil) 1,000 mg PO BID [facility] On Hold: 02/13/25 10:22 Last Admin: 02/13/25 10:08 Dose: Not Given Non-Formulary Medication (Methenamine Hippurate) 1 gm PO BID [facility] Last Admin: 02/17/25 09:18 Dose: 1 gm Non-Formulary Medication (Nintedanib [Ofev]) 150 mg PO BID [facility] On Hold: 02/13/25 10:22 Last Admin: 02/13/25 10:08 Dose: Not Given Non-Formulary Medication (Mirabegron) 50 mg PO BEDTIME [facility] Last Admin: 02/16/25 20:13 Dose: 50 mg Pantoprazole Sodium (Pantoprazole Sodium 40 Mg Tablet.) 40 mg PO BID [facility] Last Admin: 02/17/25 09:17 Dose: 40 mg Pregabalin (Pregabalin 75 Mg Capsule) 150 mg PO BID [facility] Last Admin: 02/17/25 09:17 Dose: 150 mg Time Spent With Patient Time: Total time spent is greater than 50% in coordination of care (as documented) at patient's floor/unit and/or counseling patient:
[2025-02-18 10:19] LABS: Basophils #(Absolute) Auto 0.1 (0.0-0.1); Basophils%(Percent) Auto 1.1 (0.1-0.85); Granulocytes % - Auto 93.1 % (47.8-71.3); Granulocytes#(Absolute)- Auto 10.2 (2.3-6.0); Hematocrit 38.1 % (35.9-46.7); Mean Corpuscular Volume 91.7 fl (81.0-93.7); Monocytes #(Absolute)- Auto 0.5 (1.1-3.1); Monocytes %(Percent)- Auto 4.9 % (3.6-9.8); Platelet Count 124 K/uL (152-353)
--- NOTE | 2025-02-18 13:02 | Discharge Summary ---
DS: Providers Provider Date of admission: 02/12/25 23:42 Primary care physician: Minnie Biggs Admitting clinician: Janina Noel Attending physician on admission: Earl Jones Attending physician on discharge: Yoon Paulson Discharging clinician: Yoon Paulson Anticipated date of discharge: 02/18/25 DS: Diagnosis Discharge Diagnosis (1) Pneumonia: Qualifiers: Laterality: left Lung location: lower lobe of lung Pneumonia type: due to unspecified organism Qualified Code(s): J18.9 - Pneumonia, unspecified or ganism (2) Interstitial lung disease: (3) Cirrhosis of liver: Qualifiers: Ascites presence: without ascites Hepatic cirrhosis type: unspecified hepatic cirrhosis Qualified Code(s): K74.60 - Unspecified cirrhosis of liver (4) Lupus: (5) Hypoalbuminemia: (6) Anemia: Qualifiers: Anemia type: iron deficiency Iron deficiency anemia type: other iron deficiency Qualified Code(s): D50.8 - Other iron deficiency anemias (7) Iron deficiency: (8) Thrombocytopenia: (9) Hypokalemia: DS: Summary Hospital Course Hospital Course: 2254: due to patient ongoing need for increased O2 to keep O2 sats greater than 92%, will admit patient to the medical floor for further evaluation and treatment. VSS, no s/s of acute distress noted Patient found relief with high flow oxygen that was started on the day of admission to give patient relief from hypoxia and respiratory distress. Patient cannot maintain sats unless she had a good seal with the high flow oxygen for the first 3 days despite attempts to wean Repeatedly. Patient's WBCs improved from 18.1 on 02/13/2025 on day of admission down to 02/17/2025 WBCs was 8.9 on day of discharge on 02/18/2025 did worsen to 11. Patient's platelets remain low throughout stay on admission were 111 on 02/14/2025 a decrease to 96 on 02/15/2025 they decreased to 87 and continue to improve after that until on 610 and they were 124. Patient no evidence of easy bruising or bleeding while outside the hospital stools were normal Hemoglobin remained stable throughout hospital stay actually improved from 10.8 on admission to 12.5 on discharge Patient tolerated the Levaquin and Zosyn as patient had recent hospitalization for a right-sided pneumonia of the left lung pneumonia like she has now as she continues to have interstitial lung disease and has not followed with [place] imaging last hospitalization In this hospitalization. tolerated the steroids. Patient is ABG pH improved from 7.53 down to 7.45 over the first 3 days the treatment PO2 improved from 53-88 on high flow pCO2 remain 4849 on 02/12/2025 and 02/15/2025 with a respiratory index that improved from 11.3 down to 2 prior to discharge was not rechecked from the 02/15/2025 ABG Anion gap improved from 208 admission to 5 on day of discharge. Potassium improved from 3.4-4.0 on day of discharge. Comes oxide improved from 37-30 on day of discharge. Patient's albumin remained stable between 2.6-2.5 on day of discharge Patient will discuss this hospitalizations with her last hospitalization with her doctor at [place] and will ensure that he got a copy of the CAT scan that was done on 02/17/2025 as I sent a copy to his office secondary to him being the original requesting physician for the study and I just yes Needed to know some answers about pneumonia status and lung status while patient was in the hospital in the hospital this time as she was slow to respond to treatment and would desat rather quickly and remained unstable for long peers of time throughout hospital stay until the last 24 hours of hospitalization where she showed moderate improvement although still not at her original baseline is much better than during hospitalization Status at Discharge Functional status at discharge: uses cane/walker Overall status at discharge: patient is progressing back to baseline Time Spent with Patient Time attestation: Total time spent providing and/or coordinating discharge services:68 Time spent: greater than 30 minutes Exam Constitutional: abnormal general appearance (chronically ill), no apparent distress, abnormal body habitus (obese), limitations noted (physical limitations) and alert Vital Signs - 24 hr 02/17/25 13:03 02/17/25 16:00 02/17/25 16:50 Temperature 98.3 F Pulse Rate [Left R adial] 68 Respiratory Rate 20 Blood Pressure [Le ft Arm] 147/75 Pulse Oximetry 97 99 97 Oxygen Delivery Me thod Nasal Cannula Oxygen Flow Rate 4 Fraction of Inspir ed Oxygen 02/17/25 19:24 02/17/25 20:15 02/17/25 20:15 Temperature 98.0 F Pulse Rate [Left R adial] 94 H Respiratory Rate 24 Blood Pressure [Le ft Arm] 170/84 Pulse Oximetry 90 L 91 L 91 L Oxygen Delivery Me thod Nasal Cannula Nasal Cannula Oxygen Flow Rate 4 4 Fraction of Inspir ed Oxygen 36 02/17/25 22:57 02/18/25 04:00 02/18/25 08:00 Temperature 98.0 F 97.8 F Pulse Rate [Left R adial] 80 61 78 Respiratory Rate 22 22 18 Blood Pressure [Le ft Arm] 137/75 167/83 Pulse Oximetry 96 97 91 L Oxygen Delivery Me thod Nasal Cannula Nasal Cannula Nasal Cannula Oxygen Flow Rate 4 4 4 Fraction of Inspir ed Oxygen 02/18/25 08:13 Temperature Pulse Rate [Left R adial] Respiratory Rate Blood Pressure [Le ft Arm] Pulse Oximetry 93 L Oxygen Delivery Me thod Oxygen Flow Rate Fraction of Inspir ed Oxygen HENMT: normocephalic, head/scalp atraumatic, hearing grossly normal bilaterally, external ears normal, EACs normal, nasal mucous membranes normal, external nose normal, oral mucous membranes normal and oropharynx normal Eyes: PERRL, EOMs intact bilaterally, conjunctivae normal, no scleral icterus, papilledema noted and periorbital findings normal Neck/C-Spine: abnormal to visual inspection, trachea midline, cervical spine nontender, abnormal cervical ROM noted, supple, no meningeal signs and no carotid bruits Lymph: no lymphadenopathy noted and no lymphedema noted Chest: inspection of chest normal and palpation of chest normal Respiratory: breath sounds unequal, normal respiratory effort, auscultation abnormal (diminished breath sound), wheezing noted (diffuse), no rales, no retractions, no use of accessory muscles and chest percussion normal Cardiovascular: normal heart rate noted, regular rhythm noted, no gallop, no rub, murmur noted (II/), no JVD, no clicks, peripheral pulses 2+ throughout, no bruits noted and no additional abnormal heart sounds Gastrointestinal: abdomen normal to inspection, abdomen soft to palpation, nontender to palpation, nontender to percussion, nondistended, normoactive bowel sounds, no hepatosplenomegaly, no masses, no pulsatile mass, no ascites and no hernia Genitourinary: no CVA tenderness and bladder normal to palpation Back/Pelvis: spine abnormal to inspection, no thoracic spine tenderness, no lumbar spine tenderness, thoracic spine ROM abnormal, lumbar spine ROM abnormal and paraspinal muscle tenderness noted Extremities: normal to inspection, normal to palpation, no tenderness, full ROM, no joint enlargement and no deformity Neurology: circuit court judge II-XII intact, no movement abnormality noted, no focal motor deficit noted, sensory deficit noted, gait abnormality noted, speech normal, coordination normal, no pronator drift noted, no fasciculations noted and GCS normal Psychiatry: Mental Status Exam documented within this Exam's Psych section mental status grossly normal, oriented x3, thought process normal, cooperative, affect normal, psychomotor activity normal and memory normal Feel stressed/tense/nervous/anxious/difficulty sleeping: to some extent Life stressors: other Life stressor details: Health issues Skin: skin color normal, no rash, no lesions, ecchymosis noted, no wounds, no lacerations, skin turgor normal, no petechiae, no mottling and nails abnormality noted DS: Data Data Completed and Pending Labs on day of discharge: Labs from last 24 hours 02/18/25 10:08 WBC 11.0 H RBC 4.2 Hgb 12.5 Hct 38.1 MCV 91.7 MCH 30.0 MCHC 32.7 L RDW 15.4 H Plt Count 124 L MPV 8.6 Gran % 93.1 H Lymph % (Auto) 0.9 L [place] % (Auto) 4.9 Eos % (Auto) 0.0 L Baso % (Auto) 1.1 H Lymph # (Auto) 0.1 L [place] # (Auto) 0.5 L Eos # (Auto) 0.0 Baso # (Auto) 0.1 Absolute Gran (auto) 10.2 H Sodium 141 Potassium 4.0 Chloride 106.0 Carbon Dioxide 30 Anion Gap 5.0 BUN 15 Creatinine 0.6 Estimated GFR 96.5 Glucose 145 H Calcium 8.1 L Phosphorus 2.6 Magnesium 2.4 Total Bilirubin 0.71 AST 23 ALT 48 Alkaline Phosphatase 81 Total Protein 6.0 L Albumin 2.[address] scan - chest: Attestation: I have reviewed the pertinent imaging results. Radiologist's impression: CT CHEST WO CON HISTORY: ILD,Pneumonia ILD,Pneumonia; COMPARISON: Chest CT 02/12/2025, CT chest 03/18/2024 TECHNIQUE: Multiple CT axial images of the chest were obtained without IV contrast. Coronal and sagittal images were reconstructed. Dose reduction techniques included Automated Exposure Control (AEC) and adjustment of mA and kV. FINDINGS: Cardiomegaly is present but stable. Atherosclerotic calcification is present in the coronary arteries. The pulmonary artery and aorta have a normal caliber. No mediastinal mass or significant lymphadenopathy. The thyroid has a normal size and configuration. No axillary mass or significant axillary lymphadenopathy is identified. There is no significant pleural effusion. There is airspace and ground-glass opacity in the lungs. Multifocal and bilateral. The findings are not changed from 5 days ago. Many of these abnormalities were not present on the prior study from March 2024. Findings today could represent a progression of chronic interstitial lung disease. In this case, the lungs are not well inflated suggesting a restrictive lung disease component. But this might also represent multifocal bilateral pneumonia superimposed on interstitial lung disease. In this case, this has not improved in the last 5 days. Limited images of the upper abdomen show no significant abnormality. Surgical clips are present in the gallbladder fossa from a cholecystectomy. Mild degenerative spondylitic changes are present in the spine. IMPRESSION: 1. Multifocal bilateral lung disease, not changed in the last 5 days but new or progressed since 2023 Discharge Plan Discharge Disposition: Home, Self-Care Condition: Improved Discharge Medications: Continued atorvastatin 10 mg tablet 10 mg PO DAILY carvedilol 6.25 mg tablet 6.25 mg PO DAILY folic acid 1 mg tablet 1 mg PO DAILY methenamine hippurate 1 gram tablet 1 g PO Q12H mirabegron 50 mg tablet extended release 24 hr 50 mg PO Q24H montelukast 10 mg tablet 10 mg PO DAILY Ofev 150 mg capsule 150 mg PO Q12H pantoprazole 40 mg tablet,delayed release (DR/EC) 40 mg PO DAILY prednisone 5 mg tablet 5 mg PO DAILY ipratropium bromide 42 mcg (0.06 %) spray,non-aerosol 2 spray INTRANASAL BID pregabalin 150 mg capsule 150 mg PO BID ferrous sulfate [FeroSul] 325 mg (65 mg iron) tablet 325 mg PO DAILY aspirin 81 mg tablet,delayed release (DR/EC) 81 mg PO DAILY ascorbic acid (vitamin C) [C-500] 500 mg tablet 500 mg PO DAILY calcium carbonate-vitamin D3 [Calcium 600 + D(3)] 600 mg-10 mcg (400 unit) tablet 1 tab PO BID mycophenolate mofetil 500 mg tablet 1,000 mg PO BID Patient Comments: TAKE 2 TABLETS (1,000 MG) BY MOUTH TWICE DAILY. prednisone 10 mg tablet 20 mg PO BID Qty: 16 0RF Rx Instructions: 2 tabs BID x 2 days, then 1 tab BID x 2 days, then 1 tab daily x 2 days, then 1/2 tab daily Discharge Orders: Discharge Order (Routine); Ordered 02/18/25 Ordered By: Yoon Paulson Activity: increase activity as tolerated Diet: advance to your usual diet Diet Detail: small meals and increase water Activity Restrictions/Additional Instructions: follow up [facility] [place] for iron infusion follow up Pulmonology in [place] for worsening interstitial lung disease wear mask when out and around people and avoid extreme temps and allergens discuss use of high flow oxygen at home. follow up PCP in next 5-7 days or sooner if worsens or any concern or questions or can return to the ER if needed Forms: Portal/Health Info Access Inst Follow-Ups: Minnie Biggs [Primary Care Provider, Medical] - 02/20/25 9:30 am
[2025-02-18 13:24] VITALS: BP 154/94; PULSE 72; RESP 20; TEMP 98.3
== END 2025-02-18 14:56 | disposition home or self-care (01) | DRG 195 ==
LOC: ED 20:34 → MS 20:34 → OBSVTOIN 23:42 → MS 02-13 00:35
PROVIDERS: ADMIT Nurse Practitioner Family; ATTEND Nurse Practitioner
DX: Z79.899 Other long term (current) drug therapy; J18.9 Pneumonia, unspecified organism; D50.8 Other iron deficiency anemias; E87.6 Hypokalemia; D69.6 Thrombocytopenia, unspecified; Z79.52 Long term (current) use of systemic steroids; Z99.81 Dependence on supplemental oxygen; K74.60 Unspecified cirrhosis of liver; E88.09 Other disorders of plasma-protein metabolism, not elsewhere classified; Z79.82 Long term (current) use of aspirin; R09.02 Hypoxemia